=== PATIENT | female | born 1935 | race Caucasian/White ===

== ENCOUNTER 2017-04-26 16:13 | Inpatient (IN) | payer MEDICARE ==
[2017-04-26] MEDS ORDERED: Albuterol/Ipratropium NEB.SOL* Albuterol 2.5 MG/Ipratropium 0.5 MG 3 ML INH ONE (16:33)
[2017-04-26] MEDS ORDERED: NS 0.9% 1000 ML* 1,000 ML IV ONE ×2 (16:33→18:55)
[2017-04-26] MEDS ORDERED: methylPREDNISolone 125 MG* 2 ML VIAL IV ONE (16:33)
[2017-04-26] MEDS ORDERED: Levofloxacin 750 MG IVPREMIX(* 750 MG/150 ML BAG IVPB ONE (16:33)
--- NOTE | 2017-04-26 16:55 | RAD ---
INDICATION: Short of breath COMPARISON: October 02, 2013 TECHNIQUE: An AP portable view obtained at 1646 hours is submitted. FINDINGS: Bones/Soft Tissues: There are no acute bony findings. Cardiomediastinal: The cardiomediastinal silhouette is normal. There is prominence of interstitium and central pulmonary vessels Lungs: There is progressive airspace disease in the right lung base which could reflect an acute pneumonitis superimposed upon vascular congestive findings. Pleura: Small bilateral pleural effusions. Other: None IMPRESSION: MODERATE VASCULAR CONGESTION. POSSIBLE DEVELOPING RIGHT BASAL INFILTRATE. SMALL BILATERAL EFFUSIONS. SUGGEST FOLLOW-UP.
[2017-04-26 17:44] LABS: Hematocrit 37 % (35-47); Hemoglobin 11.9 g/dl (12.0-16.0); Mean Corpuscular HGB Conc 33 g/dl (31-36); Mean Corpuscular Hemoglobin 29 pg (27-31); Mean Corpuscular Volume 88 fL (80-97); Mean Platelet Volume 7 um3 (7.4-10.4); Red Blood Count 4.14 10^6/ul (4.0-5.4); Red Cell Distribution Width 13 % (10.5-15); White Blood Count 16.5 10^3/ul (3.5-10.8)
[2017-04-26 17:49] LABS: Add Diff/Slide Review? Slide Review Added; Comments Flag Yes
[2017-04-26 17:59] LABS: Albumin 3.3 g/dL (3.2-5.2); BUN/Creatinine Ratio 36.2 (8-20); Calcium 9.3 mg/dL (8.6-10.3); EGFR African American 104.5 (>60); EGFR Non-African American 81.3 (>60); Globulin 4.5 g/dL (2-4); Potassium 4.1 mmol/L (3.5-5.0); Total Bilirubin 0.3 mg/dL (0.2-1.0); Total Protein 7.8 g/dL (6.4-8.9)
[2017-04-26 18:01] LABS: Troponin I 0.06 ng/mL (<0.04)
[2017-04-26 18:35] LABS: Immature Granulocytes 15 % (0-9); Neutrophil % 74 % (38-83); Promyelocytes % 1 %; RBC Morphology Normal (Normal)
[2017-04-26] MEDS ORDERED: Acetaminophen TAB* 325 MG PO PRN (18:41)
[2017-04-26] MEDS ORDERED: Ondansetron INJ* 2 MG/ML VIAL IV PRN (18:41)
[2017-04-26] MEDS ORDERED: Albuterol 2.5 MG/3 ML NEB.SOL* (0.083%) INH PRN (18:41)
[2017-04-26] MEDS: Albuterol/Ipratropium NEB.SOL* Albuterol 2.5 MG/Ipratropium 0.5 MG 3 ML INH SCH ×2 (19:00→22:06)
[2017-04-26] MEDS ORDERED: Levofloxacin 250 MG IVPREMX(*) 250 MG/50 ML BAG IVPB SCH (19:00)
[2017-04-26 19:03] LABS: FIO2 5
[2017-04-26 19:06] LABS: PCO2 Arterial 43 mmHg (35-45)
[2017-04-26 20:12] LABS: TSH (Thyroid Stimulating Horm) 1.61 mcIU/mL (0.34-5.60)
--- NOTE | 2017-04-26 21:18 | ED ---
Zoey Lopez Julia, scribed for Mohsen Ferrera MD on 04/26/17 at 1631 . Shortness of Breath - HPI Summary HPI Summary: This patient is an 81 year old F presenting to [facility] accompanied by son with a chief complaint of SOB since this morning. The patient rates the pain 0/10 in severity. Symptoms alleviated by nothing. Patient reports cough and congestion. Son reports worsening confusion and loss of appetite. - History of Current Complaint Chief Complaint: EDShortnessOfBreath Hx Obtained From: Patient, Family/Press Assistant Onset/Duration: Gradual Onset, Lasting Hours, Still Present Timing: Constant Alleviating Factors: Nothing - Allergy/Home Medications Allergies/Adverse Reactions: Allergies Allergy/AdvReac Type Severity Reaction Status Date / Time Amoxicillin Allergy Severe Hives Verified 10/02/13 08:41 Penicillins Allergy Severe Hives Verified 10/02/13 08:41 Sulfa Antibiotics Allergy Severe Hives Verified 10/02/13 08:41 Alendronate [From Fosamax] Allergy Unknown Verified 10/02/13 09:00 Reaction Details Cephalexin Allergy Unknown Verified 10/02/13 09:00 Reaction Details Clavulanic Acid Allergy Unknown Verified 10/02/13 09:00 [From Augmentin] Reaction Details Doxycycline Allergy Unknown Verified 10/02/13 09:00 Reaction Details Home Medications: Home Medications Albuterol 2.5MG/3ML (0.083%)* [Ventolin 2.5 MG/3 ML NEB.MARY*] 2.5 mg INH Q6H PRN 04/26/17 [History Confirmed 04/26/17] Albuterol HFA INHALER* [Ventolin HFA Inhaler*] 1 puff INH Q6H PRN 04/26/17 [ History Confirmed 04/26/17] Tiotropium CAP.INH* [Spiriva CAP.INH*] 1 cap.inh INH DAILY 04/26/17 [History Confirmed 04/26/17] PMH/Surg Hx/FS Hx/Imm Hx Respiratory History: Reports: Hx Asthma, Hx Chronic Obstructive Pulmonary Disease (COPD) Opthamlomology History: Denies: Hx Legally Blind EENT History: Denies: Hx Deafness - Surgical History Surgery Procedure, Year, and Place: APPENDECTOMY Infectious Disease History: No Infectious Disease History: Denies: Traveled Outside the [place] in Last 30 Days - Family History Known Family History: Positive: Diabetes - Social History Alcohol Use: None Hx Substance Use: No Substance Use Type: Reports: None Hx Tobacco Use: Yes Type: Cigarettes Length of Time of Smoking/Using Tobacco: 50 YEARS Have You Smoked in the Last Year: No Review of Systems Negative: Fever Positive: Shortness Of Breath, Cough, Other - congestion Positive: Other - Loss of appetite Neurological: Other - confusion All Other Systems Reviewed And Are Negative: Yes Physical Exam - Summary Physical Exam Summary: Appearance: The patient is well-nourished in no acute distress and in no acute pain. Skin: The skin is warm and dry and skin color reflects adequate perfusion. HEENT: The head is normocephalic and atraumatic. The pupils are equal and reactive. The conjunctivae are clear and without drainage. Nares are patent and without drainage. Mouth reveals dry mucous membranes and the throat is without erythema and exudate. The external ears are intact. The ear canals are patent and without drainage. The tympanic membranes are intact. Neck: the neck is supple with full range of motion and non-tender. There are no carotid bruits. There is no neck vein distension. Respiratory: Chest is non-tender. Decreased AP diameter of chest. Decreased breath sounds in the lower lobes. Tachypnea Cardiovascular: Heart is tachycardia with regular rhythm. There is no murmur or rub auscultated. There is no peripheral edema and pulses are symmetrical and equal. Abdomen: The abdomen is soft and non-tender. There are normal bowel sounds heard in all four quadrants and there is no organomegaly palpated. Musculoskeletal: There is no back tenderness noted. Extremities are non-tender with full range of motion. There is good capillary refill. There is no peripheral edema or calf tenderness elicited. Neurological: Patient is alert and oriented to person, place and time. The patient has symmetrical motor strength in all four extremities. Cranial nerves are grossly intact. Deep tendon reflexes are symmetrical and equal in all four extremities. Psychiatric: The patient has an appropriate affect and does not exhibit any anxiety or depression. Triage Information Reviewed: Yes Vital Signs On Initial Exam: Initial Vitals Temp Pulse Resp BP Pulse Ox 98.7 F 130 34 156/103 70 04/26/17 16:24 04/26/17 16:24 04/26/17 16:24 04/26/17 16:24 04/26/17 16:24 Vital Signs Reviewed: Yes Diagnostics - Vital Signs Vital Signs Temp Pulse Resp BP Pulse Ox 04/26/17 16:24 98.7 F 130 34 156/103 70 - Laboratory Lab Results: Lab Results 04/26/17 04/26/17 04/26/17 Range/Units 17:25 17:25 17:25 WBC 16.5 H (3.5-10.8) 10^3/ul RBC 4.14 (4.0-5.4) 10^6/ul Hgb 11.9 L (12.0-16.0) g/dl Hct 37 (35-47) % MCV 88 (80-97) fL MCH 29 (27-31) pg MCHC 33 (31-36) g/dl RDW 13 (10.5-15) % Plt Count 471 H (150-450) 10^3/ul MPV 7 L (7.4-10.4) um3 Neut % (Auto) 92.4 H (38-83) % Lymph % (Auto) 3.0 L (25-47) % [place] % (Auto) 4.4 (1-9) % Eos % (Auto) 0 (0-6) % Baso % (Auto) 0.2 (0-2) % Absolute Neuts (auto) 15.2 H (1.5-7.7) 10^3/ul Absolute Lymphs (auto) 0.5 L (1.0-4.8) 10^3/ul Absolute Monos (auto) 0.7 (0-0.8) 10^3/ul Absolute Eos (auto) 0 (0-0.6) 10^3/ul Absolute Basos (auto) 0 (0-0.2) 10^3/ul Absolute Nucleated RBC 0 10^3/ul Immature Gran % 15 H (0-9) % Neutrophils % 74 (38-83) % Band Neutrophils % 14 H (0-8) % Lymphocytes % 6 L (25-47) % Monocytes % 5 (0-13) % Promyelocytes % 1 % Nucleated RBC % 0 Normal RBC Morphology Normal (Normal) Sodium 137 (133-145) mmol/L Potassium 4.1 (3.5-5.0) mmol/L Chloride 99 L (101-111) mmol/L Carbon Dioxide 28 (22-32) mmol/L Anion Gap 10 (2-11) mmol/L BUN 25 H (6-24) mg/dL Creatinine 0.69 (0.51-0.95) mg/dL Est GFR ( Amer) 104.5 (>60) Est GFR (Non-Af Amer) 81.3 (>60) BUN/Creatinine Ratio 36.2 H (8-20) Glucose 164 H (70-100) mg/dL Lactic Acid (0.5-2.0) mmol/L Calcium 9.3 (8.6-10.3) mg/dL Total Bilirubin 0.30 (0.2-1.0) mg/dL AST 28 (13-39) U/L ALT 17 (7-52) U/L Alkaline Phosphatase 99 (34-104) U/L Troponin I 0.06 H* (<0.04) ng/mL B-Natriuretic Peptide 90 ( - 100) pg/mL Total Protein 7.8 (6.4-8.9) g/dL Albumin 3.3 (3.2-5.2) g/dL Globulin 4.5 H (2-4) g/dL Albumin/Globulin Ratio 0.7 L (1-3) TSH 1.61 (0.34-5.60) mcIU/mL // Range/Units 17:25 WBC (3.5-10.8) 10^3/ul RBC (4.0-5.4) 10^6/ul Hgb (12.0-16.0) g/dl Hct (35-47) % MCV (80-97) fL MCH (27-31) pg MCHC (31-36) g/dl RDW (10.5-15) % Plt Count (150-450) 10^3/ul MPV (7.4-10.4) um3 Neut % (Auto) (38-83) % Lymph % (Auto) (25-47) % [place] % (Auto) (1-9) % Eos % (Auto) (0-6) % Baso % (Auto) (0-2) % Absolute Neuts (auto) (1.5-7.7) 10^3/ul Absolute Lymphs (auto) (1.0-4.8) 10^3/ul Absolute Monos (auto) (0-0.8) 10^3/ul Absolute Eos (auto) (0-0.6) 10^3/ul Absolute Basos (auto) (0-0.2) 10^3/ul Absolute Nucleated RBC 10^3/ul Immature Gran % (0-9) % Neutrophils % (38-83) % Band Neutrophils % (0-8) % Lymphocytes % (25-47) % Monocytes % (0-13) % Promyelocytes % % Nucleated RBC % Normal RBC Morphology (Normal) Sodium (133-145) mmol/L Potassium (3.5-5.0) mmol/L Chloride (101-111) mmol/L Carbon Dioxide (22-32) mmol/L Anion Gap (2-11) mmol/L BUN (6-24) mg/dL Creatinine (0.51-0.95) mg/dL Est GFR ( Amer) (>60) Est GFR (Non-Af Amer) (>60) BUN/Creatinine Ratio (8-20) Glucose (70-100) mg/dL Lactic Acid 1.1 (0.5-2.0) mmol/L Calcium (8.6-10.3) mg/dL Total Bilirubin (0.2-1.0) mg/dL AST (13-39) U/L ALT (7-52) U/L Alkaline Phosphatase (34-104) U/L Troponin I (<0.04) ng/mL B-Natriuretic Peptide ( - 100) pg/mL Total Protein (6.4-8.9) g/dL Albumin (3.2-5.2) g/dL Globulin (2-4) g/dL Albumin/Globulin Ratio (1-3) TSH (0.34-5.60) mcIU/mL Result Diagrams: 04/26/17 17:25 04/26/17 17:25 Lab Statement: Any lab studies that have been ordered have been reviewed, and results considered in the medical decision making process. - EKG 16:59 Cardiac Rate: Tachycardia EKG Rhythm: Sinus Tachycardia - at 127 BPM EKG Interpretation: This EKG is otherwise unremarkable. Course/Dx - Course Course Of Treatment: Ms. Bonilla presented with SOB. She has a history of COPD and had been getting worse for several days. She was given antibiotics, solumedrol and duonebs and was found to have a probable pneumonia. She is being admitted to the hospitalist service. - Diagnoses Provider Diagnoses: Pneumonia, COPD exacerbation Discharge - Discharge Plan Condition: Stable Disposition: ADMITTED TO [facility] The documentation as recorded by the Zoey summers Julia accurately reflects the service I personally performed and the decisions made by me, Mohsen Ferrera MD.
[2017-04-26] MEDS: Mometasone/Formoter 200/5 MDI INH SCH ×2 (21:42→22:08)
[2017-04-26] MEDS: NS 0.9% 1000 ML* 1,000 ML IV SCH (21:51)
[2017-04-26] MEDS: Heparin VIAL(*) 5000 UNITS/ML VIAL (FIVE THOUSAND) SUBCUT SCH (21:55)
--- NOTE | 2017-04-26 22:22 | HP ---
CC: Dr. Aceves * HISTORY AND PHYSICAL: DATE OF ADMISSION: 04/26/17 PROVIDER: Sangeeta Anthony NP. PRIMARY CARE PROVIDER: Dr. Aceves. ATTENDING PHYSICIAN WHILE IN THE HOSPITAL: Dr. Khurram Nunez * (report dictated by Sangeeta Anthony NP). CHIEF COMPLAINT: 1. Shortness of breath. 2. Tachycardia. HISTORY OF PRESENT ILLNESS: Ms. Bonilla is an 81-year-old female patient. She carries a history of COPD and asthma. She comes to the ER today complaining of increased shortness of breath for 2 days, decreased appetite and decreased p.o. intake for the past 2 days. She states that she did try her albuterol nebulizer at home today with no relief from the shortness of breath. She reports that she developed a moist congested cough approximately 2 days ago. She denies any fever. She denies chills. She denies any nausea, vomiting or diarrhea, denies any abdominal pain, denies any loss of consciousness. She states that she just started feeling fatigued today. She denies any urinary frequency or dysuria. Because of the shortness of breath and history of COPD, we were asked to evaluate for admission. The patient was also noted to be tachycardic. PAST MEDICAL HISTORY: Significant for: 1. COPD. 2. Asthma. PAST SURGICAL HISTORY: 1. Tubal ligation. 2. Partial thyroidectomy. 3. Appendectomy. MEDICATIONS: Home medications include: 1. Spiriva inhaler p.r.n. 2. Albuterol inhaler 1 puff q. 6 hours as needed and an albuterol nebulizer 2.5 mg q. 6 hours as needed. FAMILY HISTORY: Mother had a history of coronary artery disease with an [facility] in her 90s. No family history of diabetes. There is a family history and father had lung/bone cancer and the patient's sister also had lung cancer. SOCIAL HISTORY: The patient does report that she quit smoking 2 years ago. Prior to that she smoked approximately one pack per day for 65 years. She denies any alcohol use, denies drug use. She reports that she is tired. She currently lives with her son in her own home. Surrogate decision maker in the case that she is unable to make her own decisions is her son, Aditya Bonilla. His phone number is [phone]. Secondary surrogate decision maker is her daughter, Karon Liz. Her phone number is [phone]. REVIEW OF SYSTEMS: There is no documented fever. There is no significant weight change. There is no double vision, no ear drainage. She denies any rhinorrhea or sore throat. She denies any chest pain. She does report shortness of breath and moist nonproductive cough. She denies nausea, vomiting or diarrhea. She denies abdominal pain. There is no dysuria, no frequency. There is no seizure. No loss of consciousness. No pruritus, no skin ulcerations. Review of 14 systems was completed and all others are negative. PHYSICAL EXAMINATION GENERAL: At this time, Ms. Bonilla is an 81-year-old female patient. She appears mildly distressed. She is sitting on the stretcher in the ER. VITAL SIGNS: Blood pressure is 132/83, heart rate is anywhere from 115 to 127, temp is 98.7, respirations are 26 to 35, O2 sat is 97% on 4 liters nasal cannula. Her O2 sat on room air on admission to the ER was 70%. She does report that she occasionally wears home O2 at 3 liters. She reports that she wears home oxygen approximately 3 hours per day. HEENT: Head is atraumatic, normocephalic. Eyes: EOMs are intact. Sclerae anicteric, not pale. Oral mucosa appears very dry. NECK: Supple. There is no lymphadenopathy. LUNGS: Diminished throughout bilaterally with rales in the right base. She does have mild expiratory wheezing. CARDIAC: Heart sounds S1, S2 are irregular in rate and rhythm. There are no murmurs, rubs, or gallops. She is tachycardic. ABDOMEN: Soft, nontender. Bowel sounds are active x4. She reports a bowel movement today. EXTREMITIES: Pulses are +2 throughout. She moves all 4 extremities with 5/5 strength. NEUROLOGICAL: She is awake. She is alert and oriented x3. Handgrips are equal. Tongue is midline. Speech is clear. There is no focal deficit noted. SKIN: Intact. DIAGNOSTIC STUDIES/LAB DATA: WBCs are 16.5, hemoglobin is 11.9, hematocrit is 37, platelet count is 471, neutrophils are 92.4, lymphs are 3.0. Sodium is 137 , potassium 4.1, chloride 99, carbon dioxide is 28, anion gap is 10, BUN is 25, creatinine is 0.69, glucose is 164, lactic acid is 1.1, calcium is 9.3, AST 28, ALT 17. Her troponin was 0.06. Albumin is 3.3. ABG: pH is 7.38, pCO2 is 43, pO2 is 149, O2 saturation is 99.6, HCO3 is 25, FiO2 is 5 liters via oxygen mask. BNP was 90. EKG shows irregular sinus tachycardia at a rate of 127. Chest x-ray: Impression is moderate vascular congestion, possible developing right basilar infiltrates, small bilateral effusions. ASSESSMENT AND PLAN: Ms. Bonilla is an 81-year-old female patient who came into the ER today with complaints of shortness of breath and cough. We were asked to evaluate her because of the tachycardia and shortness of breath. We will admit her to the ICU with the plan as follows: 1. Suspect right lower lobe pneumonia. Hypoxia: We will continue her on Levaquin, her creatinine clearance is 43, a renal dose of Levaquin will be started and per pharmacy that is 250 mg q. 24 hours. O2 will be via Vapotherm to maintain O2 saturations greater than or equal to 92%. We will repeat a CBC and BMP in the a.m. 2. Chronic obstructive pulmonary disease: We will continue her on albuterol nebulizers and DuoNeb. We will also put her on Dulera and continue oxygen support as needed. 3. Tachycardia: We will continue to hydrate her with IV fluids. I will also check lab work in the morning. 4. Elevated troponin: We will trend troponins q. 3 hours. I suspect that this could be due to the respiratory demand. We will repeat an EKG this evening and also in the morning. 5. Sepsis: We could consider the possibility of sepsis. Her qSOFA scale is 1 , which puts her at approximately 7% risk of mortality during the hospital stay. We have given her IV hydration and IV antibiotics. We will order sputum culture and a UA. 6. FEN: She can be placed on a clear liquid diet and advanced to regular as tolerated. 4. Code status: She has a full code. 5. DVT prophylaxis: She will receive heparin 5000 units subcu q. 8 hours. 6. Disposition: She will be admitted to the ICU. TIME SPENT: Time spent on this admission was approximately 60 minutes, greater than half of that time was spent [id number] with the patient obtaining history and physical; the other half of the time was spent going over the plan of care and implementing the plan of care. I have discussed my plan of care with my attending Dr. Khurram Nunez and he is in agreement with my plan. SANGEETA ANTHONY, ENGINE DYNAMOMETER TESTER [id number]/[facility] #: [id number] CRESENCIO
[2017-04-27] MEDS: Albuterol/Ipratropium NEB.SOL* Albuterol 2.5 MG/Ipratropium 0.5 MG 3 ML INH SCH ×4 (03:48→20:42)
[2017-04-27 05:49] LABS: Hematocrit 30 % (35-47); Hemoglobin 10.3 g/dl (12.0-16.0); Mean Corpuscular HGB Conc 34 g/dl (31-36); Mean Corpuscular Hemoglobin 30 pg (27-31); Mean Corpuscular Volume 89 fL (80-97); Mean Platelet Volume 7 um3 (7.4-10.4); Red Blood Count 3.41 10^6/ul (4.0-5.4); Red Cell Distribution Width 13 % (10.5-15); White Blood Count 9.6 10^3/ul (3.5-10.8)
[2017-04-27 05:59] LABS: Add Diff/Slide Review? Slide Review Added; Comments Flag Yes
[2017-04-27] MEDS: Heparin VIAL(*) 5000 UNITS/ML VIAL (FIVE THOUSAND) SUBCUT SCH ×3 (06:09→23:23)
[2017-04-27] MEDS: methylPREDNISolone 125 MG* 2 ML VIAL IV SCH ×2 (06:09→16:56)
[2017-04-27 06:10] LABS: BUN/Creatinine Ratio 32.8 (8-20); Calcium 8.2 mg/dL (8.6-10.3); EGFR African American 127.7 (>60); EGFR Non-African American 99.3 (>60); Magnesium 1.8 mg/dL (1.9-2.7)
[2017-04-27 06:36] LABS: Troponin I 0.09 ng/mL (<0.04)
[2017-04-27 07:15] LABS: Urine Bacteria Absent (Absent); Urine Bilirubin Negative (Negative); Urine Glucose Negative (Negative); Urine Nitrite Negative (Negative)
[2017-04-27] MEDS ORDERED: Magnesium Sulfate 2 GM IV* 2 GM/50 ML BAG IVPB ONE (08:05)
[2017-04-27 08:07] LABS: Hypochromasia 1+; Immature Granulocytes 7 % (0-9); Metamyelocytes % 1 % (0-2); Myelocytes % 1 % (0-1); Neutrophil % 83 % (38-83)
--- NOTE | 2017-04-27 11:37 | PN ---
Subjective Date of Service: 04/27/17 Interval History: Patient seen and examined at bedside. Denies fever, chills, chest pain, V/D. Pt states that she has an intermittent nonproductive cough, reports nausea this AM and shortness of breath at baseline. Pt uses 3L O2 at home and has been off vapotherm since early this AM. Tele: Sinus rhythm to sinus tachycardia, rate 90-110's Family History: Unchanged from Admission Social History: Unchanged from Admission Past Medical History: Unchanged from Admission Objective Active Medications: Acetaminophen (Tylenol Tab*) 650 mg PO Q6H PRN Reason: FEVER/PAIN Albuterol (Ventolin 2.5 Mg/3 Ml Neb.Emily*) 2.5 mg INH Q2H PRN Reason: SOB/ WHEEZING Albuterol/Ipratropium (Duoneb (Albuterol 2.5 Mg/Ipratropium 0.5 Mg)) 1 neb INH [id number] AWAKE KEVIN Heparin Sodium (Porcine) (Heparin Vial(*)) 5,000 units SUBCUT Q8HR KEVIN Levofloxacin/Dextrose (Levaquin 250 Mg Ivpremx(*)) 250 mg in 50 mls @ 50 mls/ hr IVPB Q24H KEVIN Sodium Chloride (Ns 0.9% 1000 Ml*) 1,000 mls @ 75 mls/hr IV PER RATE [facility] Methylprednisolone Sodium Succinate (Solu-Medrol 125mg *) 60 mg IV Q12H KEVIN Mometasone Furoate/Formoterol Fumar (Dulera 200/5 Mdi*) 2 puff INH BID KEVIN Ondansetron HCl (Zofran Inj*) 4 mg IV Q4H PRN Reason: NAUSEA/VOMITING Vital Signs - 8 hr 04/27/17 04/27/17 04/27/17 03:40 03:49 04:00 Temperature 98.6 F Pulse Rate 90 105 Respiratory 24 30 Rate Blood Pressure 120/87 (mmHg) O2 Sat by Pulse 97 96 Oximetry 04/27/17 04/27/17 04/27/17 04:58 05:00 05:58 Temperature Pulse Rate 98 Respiratory 18 31 16 Rate Blood Pressure 101/71 (mmHg) O2 Sat by Pulse 95 Oximetry 04/27/17 04/27/17 04/27/17 06:00 07:00 07:36 Temperature Pulse Rate 98 98 97 Respiratory 29 19 16 Rate Blood Pressure 109/71 124/69 (mmHg) O2 Sat by Pulse 95 96 98 Oximetry 04/27/17 04/27/17 04/27/17 07:40 08:00 08:01 Temperature 98.3 F Pulse Rate 122 105 Respiratory 38 33 Rate Blood Pressure 134/87 (mmHg) O2 Sat by Pulse 94 96 Oximetry 04/27/17 09:00 Temperature Pulse Rate 115 Respiratory 25 Rate Blood Pressure 134/86 (mmHg) O2 Sat by Pulse 95 Oximetry Oxygen Devices in Use Now: Nasal Cannula - 3L Appearance: NAD, sitting up in a chair Ears/Nose/Mouth/Throat: Mucous Membranes Moist Respiratory: Symmetrical Chest Expansion and Respiratory Effort, Clear to Auscultation - , diminished Cardiovascular: NL Sounds; No Murmurs; No JVD, RRR Abdominal: NL Sounds; No Tenderness; No Distention Extremities: No Edema Skin: No Rash or Ulcers Neurological: Alert and Oriented x 3, NL Muscle Strength and Tone Lines/Tubes/Other Access: Clean, Dry and Intact Peripheral IV - site benign Nutrition: Taking PO's Result Diagrams: 04/27/17 05:43 04/27/17 05:43 Additional Lab and Data: Microbiology and Other Data: Microbiology 04/27/17 06:15 Legionella Urinary Antigen - Final Urine Negative Legionella Streptococcus pneumoniae Ag Screen - Final Negative S. pneumo Antigen 04/26/17 21:09 Nasal Screen MRSA (PCR)([facility]) - Final Nasal Mrsa Negative 04/26/17 19:36 Influenza Types A,B Antigen ([facility]) - Final Nasal Specimen received for Influenza A/B Molecular testing Assess/Plan/Problems-Billing Assessment: Ms. Bonilla is an 81 yo female with PMH significant for COPD and asthma who presented to the emergency room with complaints of shortness of breath and cough. She was found to have pneumonia and hypoxia. - Patient Problems (1) Pneumonia Code(s): J18.9 - PNEUMONIA, UNSPECIFIED ORGANISM SNOMED Code(s): 588913713 Comment: - Afebrile and leukocytosis resolved - Sputum culture pending - S. Pneumo and legionella antigens negative - Influenza A/B PCR negative - Continue Levaquin (2) Acute respiratory failure Code(s): J96.00 - ACUTE RESPIRATORY FAILURE, UNSP W HYPOXIA OR HYPERCAPNIA SNOMED Code(s): 95951101 Comment: - Resolved - Acute on chronic hypoxic respiratory failure - Pt has been weaned off vapotherm to baseline O2 of 3L via NC (3) Tachycardia Code(s): R00.0 - TACHYCARDIA, UNSPECIFIED SNOMED Code(s): 4649010 Comment: - Continue tele (4) Elevated troponin Code(s): R74.8 - ABNORMAL LEVELS OF OTHER SERUM ENZYMES SNOMED Code(s): 459530917 Comment: - Denies chest pain - Troponin 0.06, 0.18, 0.18, 0.09 - Suspect secondary to demand ischemia in setting of hypoxia and PNA - Will get another EKG now (5) COPD (chronic obstructive pulmonary disease) Code(s): J44.9 - CHRONIC OBSTRUCTIVE PULMONARY DISEASE, UNSPECIFIED SNOMED Code(s): 70374062 Comment: - No signs of exacerbation - Continue albuterol PRN, Duoneb Q6H WA and dulera - Back to baseline O2 use, 3L via NC (6) DVT prophylaxis Current Visit: Yes Status: Acute Code(s): UML1725 - SNOMED Code(s): 743559350 (7) Full code status Current Visit: Yes Status: Acute Code(s): Z78.9 - OTHER SPECIFIED HEALTH STATUS SNOMED Code(s): 545587349 Status and Disposition: Inpatient. Discharge to home when medically stable, suspect in 1-2 days.
[2017-04-27] MEDS: NS 0.9% 1000 ML* 1,000 ML IV SCH (12:00)
[2017-04-27] MEDS: Mometasone/Formoter 200/5 MDI INH SCH ×2 (13:38→20:40)
[2017-04-27] MEDS: Levofloxacin 250 MG IVPREMX(*) 250 MG/50 ML BAG IVPB SCH (18:19)
[2017-04-27] MEDS: guaiFENesin ER TAB 600 MG PO SCH (23:23)
[2017-04-28] MEDS: Albuterol/Ipratropium NEB.SOL* Albuterol 2.5 MG/Ipratropium 0.5 MG 3 ML INH SCH ×4 (03:58→20:26)
[2017-04-28] MEDS: Heparin VIAL(*) 5000 UNITS/ML VIAL (FIVE THOUSAND) SUBCUT SCH ×3 (05:44→22:36)
[2017-04-28] MEDS: methylPREDNISolone 125 MG* 2 ML VIAL IV SCH ×2 (05:53→20:21)
[2017-04-28] MEDS: NS 0.9% 1000 ML* 1,000 ML IV SCH ×2 (05:54→20:23)
[2017-04-28] MEDS: guaiFENesin ER TAB 600 MG PO SCH ×2 (08:31→20:18)
[2017-04-28] MEDS: Mometasone/Formoter 200/5 MDI INH SCH ×2 (08:46→20:29)
--- NOTE | 2017-04-28 09:30 | PN ---
Subjective Date of Service: 04/28/17 Interval History: Patient seen and examined at bedside. She is sitting on the edge of bed, currently using 3Lnc. She reports that she still feels a little shaky but denies feeling significant SOB or CP at rest. She has not been up in her room much. She reports that she uses oxygen at home as needed but not all the time. Patient with intermittent, non-productive cough. Discussed working on mobility in room; she lives in a one story apartment with her son but states he is not home during the day. No other acute concerns at this time. Tele: Sinus tachycardia 90-102 Family History: Unchanged from Admission Social History: Unchanged from Admission Past Medical History: Unchanged from Admission Objective Active Medications: Acetaminophen (Tylenol Tab*) 650 mg PO Q6H PRN PRN Reason: FEVER/PAIN Albuterol (Ventolin 2.5 Mg/3 Ml Neb.Emily*) 2.5 mg INH Q2H PRN PRN Reason: SOB/WHEEZING Albuterol/Ipratropium (Duoneb (Albuterol 2.5 Mg/Ipratropium 0.5 Mg)) 1 neb INH [id number] AWAKE [facility] Last Admin: 04/28/17 08:46 Dose: 1 neb Guaifenesin (Mucinex*) 600 mg PO BID [facility] Last Admin: 04/28/17 08:31 Dose: 600 mg Heparin Sodium (Porcine) (Heparin Vial(*)) 5,000 units SUBCUT Q8HR KEVIN Last Admin: 04/28/17 05:44 Dose: 5,000 units Levofloxacin/Dextrose (Levaquin 250 Mg Ivpremx(*)) 250 mg in 50 mls @ 50 mls/ hr IVPB Q24H [facility] Last Admin: 04/27/17 18:19 Dose: 50 mls/hr Sodium Chloride (Ns 0.9% 1000 Ml*) 1,000 mls @ 75 mls/hr IV PER RATE [facility] Last Admin: 04/28/17 05:54 Dose: 75 mls/hr Melatonin (Melatonin (Nf)) 3 mg PO BEDTIME PRN; Protocol PRN Reason: Sleep Methylprednisolone Sodium Succinate (Solu-Medrol 125mg *) 60 mg IV Q12H [facility] Last Admin: 04/28/17 05:53 Dose: 60 mg Mometasone Furoate/Formoterol Fumar (Dulera 200/5 Mdi*) 2 puff INH BID KEVIN Last Admin: 04/28/17 08:46 Dose: 2 puff Ondansetron HCl (Zofran Inj*) 4 mg IV Q4H PRN PRN Reason: NAUSEA/VOMITING Vital Signs - 8 hr 04/28/17 04/28/17 04/28/17 03:03 07:43 08:00 Temperature 98.0 F 98.5 F Pulse Rate 89 92 Respiratory 20 18 32 Rate Blood Pressure 126/53 143/66 (mmHg) O2 Sat by Pulse 100 99 Oximetry 04/28/17 08:47 Temperature Pulse Rate 88 Respiratory 20 Rate Blood Pressure (mmHg) O2 Sat by Pulse 98 Oximetry Oxygen Devices in Use Now: Nasal Cannula Appearance: Elderly female, sitting on edge of bed, mildly tachypneic but able to speak in full sentences Eyes: No Scleral Icterus, PERRLA Ears/Nose/Mouth/Throat: Clear Oropharnyx, Mucous Membranes Moist Neck: NL Appearance and Movements; NL JVP Respiratory: Symmetrical Chest Expansion and Respiratory Effort, Clear to Auscultation - diminished Cardiovascular: NL Sounds; No Murmurs; No JVD, RRR Abdominal: NL Sounds; No Tenderness; No Distention Extremities: No Edema, No Clubbing, Cyanosis Skin: No Rash or Ulcers Neurological: Alert and Oriented x 3, NL Muscle Strength and Tone Lines/Tubes/Other Access: Clean, Dry and Intact Peripheral IV Nutrition: Taking PO's Result Diagrams: 04/28/17 09:40 04/28/17 09:37 Additional Lab and Data: Microbiology and Other Data: Microbiology 04/27/17 06:15 Legionella Urinary Antigen - Final Urine Negative Legionella Streptococcus pneumoniae Ag Screen - Final Negative S. pneumo Antigen 04/26/17 21:09 Nasal Screen MRSA (PCR)([facility]) - Final Nasal Mrsa Negative 04/26/17 19:36 Influenza Types A,B Antigen ([facility]) - Final Nasal Specimen received for Influenza A/B Molecular testing Assess/Plan/Problems-Billing Assessment: Ms. Bonilla is an 81 yo female with PMH significant for COPD and asthma who presented to the emergency room with complaints of shortness of breath and cough. She was found to have pneumonia and hypoxia. - Patient Problems (1) Pneumonia Code(s): J18.9 - PNEUMONIA, UNSPECIFIED ORGANISM Comment: - Afebrile, VSS, mentation within baseline - Still on 3Lnc and maintaining O2 sats - With new leukocytosis this AM, ? secondary to steroids - Sputum culture pending - S. Pneumo and legionella antigens negative - Influenza A/B PCR negative - Continue Levaquin (2) Acute respiratory failure Code(s): J96.00 - ACUTE RESPIRATORY FAILURE, UNSP W HYPOXIA OR HYPERCAPNIA Comment: - Resolved - Acute on chronic hypoxic respiratory failure - Pt has been weaned off vapotherm to baseline O2 of 3L via NC (3) Tachycardia Code(s): R00.0 - TACHYCARDIA, UNSPECIFIED Comment: HR 80s-90s today, sinus tachycarida Continue telemetry (4) Elevated troponin Code(s): R74.8 - ABNORMAL LEVELS OF OTHER SERUM ENZYMES Comment: - Denies chest pain - Troponin 0.06, 0.18, 0.18, 0.09 - Suspect secondary to demand ischemia in setting of hypoxia and PNA - Most recent EKG with no significant ST/T-wave changes (5) COPD (chronic obstructive pulmonary disease) Code(s): J44.9 - CHRONIC OBSTRUCTIVE PULMONARY DISEASE, UNSPECIFIED Comment: - No signs of exacerbation - Continue albuterol PRN, Duoneb Q6H WA and dulera - Back to baseline O2 use, 3L via NC (6) DVT prophylaxis Comment: SQ heparin (7) Full code status Code(s): Z78.9 - OTHER SPECIFIED HEALTH STATUS Status and Disposition: Inpatient. Discharge to home when medically stable.
[2017-04-28 10:11] LABS: Hematocrit 33 % (35-47); Hemoglobin 10.8 g/dl (12.0-16.0); Mean Corpuscular HGB Conc 33 g/dl (31-36); Mean Corpuscular Hemoglobin 29 pg (27-31); Mean Corpuscular Volume 88 fL (80-97); Mean Platelet Volume 7 um3 (7.4-10.4); Red Blood Count 3.72 10^6/ul (4.0-5.4); Red Cell Distribution Width 13 % (10.5-15); White Blood Count 19.2 10^3/ul (3.5-10.8)
[2017-04-28 10:13] LABS: Add Diff/Slide Review? Slide Review Added; Comments Flag Yes
[2017-04-28 10:39] LABS: BUN/Creatinine Ratio 32.1 (8-20); Calcium 9.1 mg/dL (8.6-10.3); EGFR African American 141.7 (>60); EGFR Non-African American 110.2 (>60); Potassium 3.9 mmol/L (3.5-5.0)
[2017-04-28 10:42] LABS: Immature Granulocytes 6 % (0-9); Metamyelocytes % 2 % (0-2); Myelocytes % 3 % (0-1); Neutrophil % 87 % (38-83); RBC Morphology Normal (Normal)
[2017-04-28] MEDS: Levofloxacin 250 MG IVPREMX(*) 250 MG/50 ML BAG IVPB SCH (20:19)
[2017-04-29] MEDS: Albuterol/Ipratropium NEB.SOL* Albuterol 2.5 MG/Ipratropium 0.5 MG 3 ML INH SCH ×3 (00:58→13:05)
[2017-04-29] MEDS: CMCS Melatonin (NF) 3 MG TAB PO PRN ×2 (02:29→21:54)
[2017-04-29] MEDS: methylPREDNISolone 125 MG* 2 ML VIAL IV SCH (05:40)
[2017-04-29] MEDS: Heparin VIAL(*) 5000 UNITS/ML VIAL (FIVE THOUSAND) SUBCUT SCH ×3 (05:41→21:55)
[2017-04-29 06:39] LABS: Hematocrit 37 % (35-47); Hemoglobin 12.5 g/dl (12.0-16.0); Mean Corpuscular HGB Conc 34 g/dl (31-36); Mean Corpuscular Hemoglobin 30 pg (27-31); Mean Corpuscular Volume 88 fL (80-97); Mean Platelet Volume 7 um3 (7.4-10.4); Red Blood Count 4.19 10^6/ul (4.0-5.4); Red Cell Distribution Width 13 % (10.5-15); White Blood Count 14.3 10^3/ul (3.5-10.8)
[2017-04-29 06:40] LABS: Add Diff/Slide Review? Slide Review Added; Comments Flag Yes
[2017-04-29 07:03] LABS: BUN/Creatinine Ratio 32.1 (8-20); EGFR African American 141.7 (>60); EGFR Non-African American 110.2 (>60)
[2017-04-29] MEDS: Mometasone/Formoter 200/5 MDI INH SCH ×2 (07:52→21:31)
[2017-04-29 08:10] LABS: Potassium 4.5 mmol/L (3.5-5.0)
[2017-04-29 08:11] LABS: Calcium 7.8 mg/dL (8.6-10.3)
[2017-04-29] MEDS: guaiFENesin ER TAB 600 MG PO SCH ×2 (08:14→21:54)
--- NOTE | 2017-04-29 17:01 | PN ---
Subjective Date of Service: 04/29/17 Interval History: Patient seen and examined at bedside. Patient remains on 3L. She reports that breathing is improved. She states she can finally has a productive cough. Pulling 3L on IS. Intermittent tachycardia Family History: Unchanged from Admission Social History: Unchanged from Admission Past Medical History: Unchanged from Admission Objective Active Medications: Acetaminophen (Tylenol Tab*) 650 mg PO Q6H PRN Albuterol (Ventolin 2.5 Mg/3 Ml Neb.Emily*) 2.5 mg INH Q2H PRN Albuterol/Ipratropium (Duoneb (Albuterol 2.5 Mg/Ipratropium 0.5 Mg)) 1 neb INH [id number] AWAKE KEVIN Guaifenesin (Mucinex*) 600 mg PO BID KEVIN Heparin Sodium (Porcine) (Heparin Vial(*)) 5,000 units SUBCUT Q8HR KEVIN Levofloxacin/Dextrose (Levaquin 250 Mg Ivpremx(*)) 250 mg in 50 mls @ 50 mls/ hr IVPB Q24H KEVIN Sodium Chloride (Ns 0.9% 1000 Ml*) 1,000 mls @ 75 mls/hr IV PER RATE KEVIN Melatonin (Melatonin (Nf)) 3 mg PO BEDTIME PRN; Protocol Methylprednisolone Sodium Succinate (Solu-Medrol 125mg *) 60 mg IV Q12H KEVIN Mometasone Furoate/Formoterol Fumar (Dulera 200/5 Mdi*) 2 puff INH BID KEVIN Ondansetron HCl (Zofran Inj*) 4 mg IV Q4H PRN Vital Signs Temp Pulse Resp BP Pulse Ox 98.0 F 91 18 148/58 96 04/29/17 15:32 04/29/17 15:32 04/29/17 15:32 04/29/17 15:32 04/29/17 15:32 Oxygen Devices in Use Now: Nasal Cannula Appearance: sitting up in bed, NAD Eyes: No Scleral Icterus, PERRLA Ears/Nose/Mouth/Throat: NL Teeth, Lips, Gums Neck: NL Appearance and Movements; NL JVP Respiratory: - - Slight crackles at right base. Cardiovascular: NL Sounds; No Murmurs; No JVD, - - irregular at times. Sinus arrhythmia on telemetry. Abdominal: NL Sounds; No Tenderness; No Distention Extremities: No Edema Skin: No Rash or Ulcers Neurological: Alert and Oriented x 3 Lines/Tubes/Other Access: Clean, Dry and Intact Peripheral IV Nutrition: Taking PO's Result Diagrams: 04/29/17 06:13 04/29/17 06:13 Additional Lab and Data: . Microbiology and Other Data: . Assess/Plan/Problems-Billing Ms. Bonilla is an 81 yo female with PMH significant for COPD and asthma who presented to the emergency room with complaints of shortness of breath and cough. She was found to have pneumonia and hypoxia. - Patient Problems (1) Acute respiratory failure Comment: Resolved. Acute on chronic hypoxic respiratory failure secondary to pneumonia. Pt has hx of COPD and only weanr oxygen PRN at home. Will try to wean oxygen down further. I/O possibly show 2-3L fluid positive. Will give 20mg IV Lasix now x1. (2) Pneumonia Comment: Still with leukocytosis this am, but improved. Continue Levaquin. Influenza negative. S. pneumo and legionella negative. (3) COPD (chronic obstructive pulmonary disease) Status: Chronic Comment: Continue IV steroids, albuterol nebs, Spiriva, and Dulera. She was not on inhaled steroids at home. At baseline only wearrs oxygen PRN. Will try to wean for O2 sat> 89. (4) Elevated troponin Comment: Suspect secondary to demand ischemia in setting of hypoxia and PNA. Most recent EKG with no significant ST/T-wave changes. Will need outpatient echo and stress test. (5) Tachycardia Comment: Improved; D/c telemetry. (6) DVT prophylaxis Comment: SQ heparin (7) Full code status Current Visit: Yes Status and Disposition: Inpatient. Discharge to home when medically stable.
[2017-04-29] MEDS ORDERED: Furosemide IV* 10 MG/ML 2 ML VIAL (20 MG) IV ONE (17:03)
[2017-04-29] MEDS: methylPREDNISolone SOD 40 MG* 1 ML VIAL IV SCH (17:46)
[2017-04-29] MEDS: Albuterol 2.5 MG/3 ML NEB.SOL* (0.083%) INH SCH (19:27)
[2017-04-30] MEDS: Albuterol 2.5 MG/3 ML NEB.SOL* (0.083%) INH SCH ×3 (01:00→12:09)
[2017-04-30] MEDS: Heparin VIAL(*) 5000 UNITS/ML VIAL (FIVE THOUSAND) SUBCUT SCH ×2 (05:15→13:59)
[2017-04-30] MEDS: methylPREDNISolone SOD 40 MG* 1 ML VIAL IV SCH (05:15)
[2017-04-30 06:08] LABS: Hematocrit 30 % (35-47); Hemoglobin 10.1 g/dl (12.0-16.0); Mean Corpuscular HGB Conc 34 g/dl (31-36); Mean Corpuscular Hemoglobin 29 pg (27-31); Mean Corpuscular Volume 87 fL (80-97); Mean Platelet Volume 7 um3 (7.4-10.4); Red Blood Count 3.48 10^6/ul (4.0-5.4); Red Cell Distribution Width 13 % (10.5-15); White Blood Count 16.2 10^3/ul (3.5-10.8)
[2017-04-30 06:16] LABS: Add Diff/Slide Review? Slide Review Added; Comments Flag Yes
[2017-04-30] MEDS: Mometasone/Formoter 200/5 MDI INH SCH (07:38)
[2017-04-30 08:30] LABS: Immature Granulocytes 5 % (0-9); Myelocytes % 2 % (0-1); Neutrophil % 81 % (38-83); RBC Morphology Normal (Normal)
[2017-04-30] MEDS: guaiFENesin ER TAB 600 MG PO SCH (08:45)
[2017-04-30] MEDS ORDERED: Tiotropium CAP.INH* CAP.INH/18 MCG (USE ORDER SET !) INH SCH (09:00)
[2017-04-30] MEDS ORDERED: Spiriva Inhaler DEVICE* 1 EACH DEVICE ONE (09:00)
[2017-04-30] MEDS ORDERED: Levofloxacin TAB* 250 MG PO SCH (09:00)
[2017-04-30 09:16] VITALS: BP 144/88
--- NOTE | 2017-04-30 11:57 | DCNOTE ---
Subjective Date of Service: 04/30/17 Interval History: Patient seen and examined at bedside. Denies SOB. Still no productive cough. Able to ambulate to BR with minimal assistance. Sat 98% on room air and 91% on 1L. At home wears 3L for exertional activities. Family History: Unchanged from Admission Social History: Unchanged from Admission Past Medical History: Unchanged from Admission Objective Active Medications: Acetaminophen (Tylenol Tab*) 650 mg PO Q6H PRN Albuterol (Ventolin 2.5 Mg/3 Ml Neb.Emily*) 2.5 mg INH [id number] AWAKE KEVIN Guaifenesin (Mucinex*) 600 mg PO BID KEVIN Heparin Sodium (Porcine) (Heparin Vial(*)) 5,000 units SUBCUT Q8HR KEVIN Levofloxacin (Levaquin Tab*) 250 mg PO Q24H KEVIN Melatonin (Melatonin (Nf)) 3 mg PO BEDTIME PRN; Protocol Methylprednisolone Sodium Succinate (Solu-Medrol 40 Mg) 40 mg IV Q12H KEVIN Mometasone Furoate/Formoterol Fumar (Dulera 200/5 Mdi*) 2 puff INH BID KEVIN Ondansetron HCl (Zofran Inj*) 4 mg IV Q4H PRN Tiotropium [place] (Spiriva Cap.Inh*) 1 cap INH DAILY KEVIN Vital Signs - 8 hr 04/30/17 04/30/17 04/30/17 07:39 07:54 08:15 Temperature 97.3 F Pulse Rate 92 113 Respiratory 20 22 18 Rate Blood Pressure 144/88 (mmHg) O2 Sat by Pulse 96 93 Oximetry Oxygen Devices in Use Now: Nasal Cannula Appearance: sitting up in bed, NAD Eyes: No Scleral Icterus, PERRLA Ears/Nose/Mouth/Throat: NL Teeth, Lips, Gums Neck: NL Appearance and Movements; NL JVP Respiratory: Symmetrical Chest Expansion and Respiratory Effort, - - decreased at bases Cardiovascular: NL Sounds; No Murmurs; No JVD Abdominal: NL Sounds; No Tenderness; No Distention Extremities: No Edema Skin: No Rash or Ulcers Neurological: Alert and Oriented x 3, NL Muscle Strength and Tone Lines/Tubes/Other Access: Clean, Dry and Intact Peripheral IV Nutrition: Taking PO's Result Diagrams: 04/30/17 05:52 04/29/17 06:13 Additional Lab and Data: . Microbiology and Other Data: . Assess/Plan/Problems-Billing Ms. Bonilla is an 81 yo female with PMH significant for COPD and asthma who presented to the emergency room with complaints of shortness of breath and cough. She was found to have pneumonia and hypoxia. - Patient Problems (1) Acute respiratory failure (2) Pneumonia (3) COPD (chronic obstructive pulmonary disease) (4) Elevated troponin (5) Tachycardia (6) DVT prophylaxis (7) Full code status Status and Disposition: Inpatient. Patient stable for discharge. Please see dictated discharge summary for detail regarding plans for diagnoses outlined above.
--- NOTE | 2017-05-01 05:34 | DS ---
CC: Dr. Aceves.* DISCHARGE SUMMARY: DATE OF ADMISSION: 04/26/17 DATE OF DISCHARGE: 04/30/17 PRIMARY CARE PHYSICIAN: Dr. Aceves. ATTENDING PHYSICIAN: Filipe Black MD * (report dictated by Fernando Sue NP). PRIMARY DIAGNOSES: 1. Acute respiratory failure secondary to pneumonia. 2. Chronic obstructive pulmonary disease exacerbation. 3. Elevated troponin. SECONDARY DIAGNOSIS: Asthma. STUDIES WHILE IN THE HOSPITAL: 1. Chest x-ray 04/26/17 moderate vascular condition possibly developing right basilar infiltrates, small bilateral effusion, suggest followup. MEDICATIONS AT THE TIME OF DISCHARGE: New medication: 1. Mucinex 600 mg oral twice daily. 2. Levaquin 250 mg oral every 24 hours. 3. Dulera 200/5 meter dosed inhaler 2 puffs inhaled twice daily. 4. Prednisone 10 mg taper 4 tablets for 3 days, 3 tablets for 3 days, 2 tabs for 3 days, 1 tablet for 3 days then stop. The following medications are the medications that patient came in on: 1. Albuterol inhaler 1 puff every 6 hours as needed. 2. Ventolin nebulizer 2.5 mg inhaled every 6 hours as needed. 3. Spiriva 1 capsule inhaled daily. HISTORY OF PRESENT ILLNESS AND HOSPITAL COURSE: Ms. Bartlett is an 81-year-old female with the past medical history significant for COPD and asthma. She presented to the emergency room on 04/26/17 with complaint of shortness of breath, decreased appetite and oral intake. Chest x-ray in the emergency room revealed possible infiltrate. The patient was not only hypoxic, but she was tachycardic in the emergency room. She was admitted to the intensive care unit and placed on Vapotherm. She was started on IV Levaquin as well as IV Solu- Medrol. Within 24 hours her oxygenation improved and she was able to be transferred back to the floor. On the floor her therapy continued. In addition to antibiotics, IV steroids nebulizer treatments and Dulera were continued. Her home Spiriva was also restarted. Gradually, she was able to be weaned down to 3 L. At home, she wears 3 L, yet only with exertion subsequently oxygen was able to be weaned down to 1 L. On 1 L she was satting 93 % and on room air she was 89%. At this point, she was able to ambulate without any complaint of shortness of breath. In addition, on admission, the patient was found to have elevated troponin of 0.18, this peaked at 0.18 and came down to 0.09. The patient has no history of heart disease. Recommendations for the patient to have an echocardiogram as well as a stress test as an outpatient once she is over the acute phase of her illness. She can follow up with Dr. Aceves who can in turn refer her for these tests. It is likely that the troponin elevation was secondary to demand ischemia as she had no EKG changes. The patient's white count was initially elevated and trended down yet subsequently started to trend up, although she remained afebrile. It is likely that this was from steroids. All of her cultures came back negative including urine culture, blood cultures. In addition she was negative for legionella and Strep pneumo antigen in her urine. PHYSICAL EXAM: On 04/30/17 vitals were as follows temperature 97.3, heart rate 90, respiratory rate 18, oxygen saturation 93% on 1 L, blood pressure 144/88. At this point, she was stable for discharge home. DISCHARGE PLAN: The patient was discharged on a regular diet. The patient has been instructed to use her nebulizer 3 times daily for the next week. The patient should follow up with Dr. Aceves within the next 4 to 7 days. The patient should return to the hospital if she experiences any worsening shortness of breath. I have reviewed all the instructions with the patient and her son and they are agreeable with the discharge today. This is a summarized report of the complex medical history and hospital stay. For more details, please see the entire medical record. TIME SPENT: Time for this discharge was 60 minutes, and 35 minutes was spent with the son discussing medications at discharge and followup instructions. CONDITION ON DISCHARGE: Stable. FERNANDO SUE NP [id number]/[facility] #: [id number] CRESENCIO
== END 2017-04-30 15:30 | disposition home or self-care (01) | DRG 193 ==
LOC: ED 16:13 → ICU 18:39 → MEDTELE 04-27 12:59
PROVIDERS: ADMIT Internal Medicine; ATTEND Internal Medicine
DX: J18.9 Pneumonia, unspecified organism (principal); J96.21 Acute and chronic respiratory failure with hypoxia; I24.8 Other forms of acute ischemic heart disease; J44.0 Chronic obstructive pulmonary disease with (acute) lower respiratory infection; E89.0 Postprocedural hypothyroidism; R00.0 Tachycardia, unspecified; J44.1 Chronic obstructive pulmonary disease with (acute) exacerbation; Z88.1 Allergy status to other antibiotic agents; Z88.0 Allergy status to penicillin; Z88.2 Allergy status to sulfonamides; Z98.51 Tubal ligation status; Z82.49 Family history of ischemic heart disease and other diseases of the circulatory system; Z80.1 Family history of malignant neoplasm of trachea, bronchus and lung
CPT/HCPCS: 36415; 36600; 71010; 80048; 80053; 81003; 81015; 82803; 83605; 83735; 83880; 84443; 84484; 85025; 87040; 87086; 87502; 87641; 87899; 93005; 94640; 94760; A9270-GY; J1644; J1940; J1956; J2920; J2930; J3475

== ENCOUNTER 2019-07-26 10:30 | Observation (INO) | payer MEDICARE ==
[2019-07-26] MEDS ORDERED: Albuterol/Ipratropium NEB.SOL* Albuterol 2.5 MG/Ipratropium 0.5 MG 3 ML INH ONE ×2 (10:50→14:56)
--- NOTE | 2019-07-26 11:06 | ED ---
Respiratory - HPI Summary HPI Summary: 83 year old F presenting to [facility] with a chief complaint of suddenly onset shortness of breath since earlier today. The patient rates the pain 0/10 in severity. Patient denies any fever, cough, sore throat, runny nose, vomiting, or diarrhea. She lives at home with her son and grandchildren. She denies any recent travel outside of the country or any history of blood clots or unilateral leg swelling. She has a history of COPD. Medication list reviewed. Allergy list reviewed. Home Medications Medication Instructions Recorded Confirmed Type Albuterol HFA INHALER* [Ventolin 1 puff INH Q6H PRN 04/26/17 04/26/17 History HFA Inhaler*] Tiotropium CAPSULE (NF) [Spiriva 1 cap.inh INH DAILY 04/26/17 04/26/17 History CAPSULE (NF)] Albuterol 2.5MG/3ML (0.083%)* 2.5 mg INH Q6H PRN #20 neb.soln 04/30/17 Rx [Ventolin 2.5 MG/3 ML NEB.MARY*] Levofloxacin TAB* [Levaquin 250 250 mg PO Q24H #3 tab 04/30/17 Rx Tab*] Mometasone/Formoter 200/5 MDI* 2 puff INH BID #1 mdi 04/30/17 Rx [Dulera 200/5 MDI*] guaiFENesin ER TAB [Mucinex*] 600 mg PO BID #14 tab.er 04/30/17 Rx predniSONE 10 mg TAB [Deltasone 10 10 mg PO DAILY #30 tab 04/30/17 Rx MG TAB*] - History of Current Complaint Chief Complaint: EDShortnessOfBreath Stated Complaint: AMS PER SON Time Seen by Provider: 07/26/19 10:40 Hx Obtained From: Patient Onset/Duration: Sudden Onset, Still Present Current Severity: None Pain Intensity: 0 Associated Signs and Symptoms: Negative - Fever, cough, sore throat, runny nose , vomiting, diarrhea - Allergy/Home Medications Allergies/Adverse Reactions: Allergies Allergy/AdvReac Type Severity Reaction Status Date / Time alendronate sodium Allergy Unknown Verified 07/26/19 14:25 [From Fosamax] Reaction Details amoxicillin Allergy Hives Verified 07/26/19 14:25 cephalexin Allergy Unknown Verified 07/26/19 14:25 Reaction Details clavulanic acid Allergy Unknown Verified 07/26/19 14:25 [From Augmentin] Reaction Details doxycycline Allergy Unknown Verified 07/26/19 14:25 Reaction Details Penicillins Allergy Hives Verified 07/26/19 14:25 Sulfa (Sulfonamide Allergy Hives Verified 07/26/19 14:25 Antibiotics) Home Medications: Home Medications ALPRAZolam TAB* [Xanax TAB*] 0.5 mg PO BEDTIME PRN 07/26/19 [History Confirmed 07/26/19] Aspirin EC TAB* [Ecotrin EC Low Dose 81 MG*] 81 mg PO DAILY 07/26/19 [History Confirmed 07/26/19] Fluconazole 150 MG (NF) [Diflucan 150 mg (NF)] 150 mg PO DAILY 07/26/19 [ History Confirmed 07/26/19] Hydrochlorothiazide TAB* [Hydrodiuril TAB*] 12.5 mg PO DAILY 07/26/19 [History Confirmed 07/26/19] Sulfamethoxazole/Trimethoprim [Sulfamethoxazole-Tmp Ds Tablet] 1 each PO BID [History Confirmed 07/26/19] PMH/Surg Hx/FS Hx/Imm Hx Respiratory History: Reports: Hx Asthma, Hx Chronic Obstructive Pulmonary Disease (COPD) Musculoskeletal History: Reports: Hx Arthritis Sensory History: Reports: Hx Contacts or Glasses Denies: Hx Legally Blind, Hx Deafness, Hx Hearing Aid Opthamlomology History: Reports: Hx Contacts or Glasses Denies: Hx Legally Blind - Surgical History Surgery Procedure, Year, and Place: APPENDECTOMY Infectious Disease History: No Infectious Disease History: Denies: Traveled Outside the [place] in Last 30 Days - Family History Known Family History: Positive: Diabetes - Social History Alcohol Use: None Hx Substance Use: No Substance Use Type: Reports: None Hx Tobacco Use: Yes Smoking Status (MU): Former Smoker Type: Cigarettes Length of Time of Smoking/Using Tobacco: 50 YEARS Have You Smoked in the Last Year: No Review of Systems Negative: Fever Negative: Sore Throat, Nasal Discharge Positive: Shortness Of Breath. Negative: Cough Negative: Vomiting, Diarrhea All Other Systems Reviewed And Are Negative: Yes Physical Exam - Summary Physical Exam Summary: Constitutional: Well-developed, Well-nourished, Alert. (-) Distressed Skin: Warm, Dry HENT: Normocephalic; Atraumatic Eyes: Conjunctiva normal Neck: Musculoskeletal ROM normal neck. (-) JVD, (-) Stridor, (-) Tracheal deviation Cardio: Rhythm regular, rate normal, Heart sounds normal; Intact distal pulses; Radial pulses are 2+ and symmetric. (-) Murmur Pulmonary/Chest wall: Expiratory wheezing in all lung mauricio, speaking in short sentences Abd: Soft, (-) tenderness, (-) Distension, (-) Guarding, (-) Rebound Musculoskeletal: 1+ pitting edema bilaterally Lymph: (-) Cervical adenopathy Neuro: Alert, Oriented x3 Psych: Mood and affect Normal Triage Information Reviewed: Yes Vital Signs On Initial Exam: Initial Vitals Temp Pulse Resp BP Pulse Ox 98.7 F 117 21 139/100 94 07/26/19 10:48 07/26/19 10:48 07/26/19 10:48 07/26/19 10:48 07/26/19 10:48 Vital Signs Reviewed: Yes Procedures - Sedation Patient Received Moderate/Deep Sedation with Procedure: No Diagnostics - Vital Signs Vital Signs Temp Pulse Resp BP Pulse Ox 07/26/19 10:48 98.7 F 117 21 139/100 94 - Laboratory Result Diagrams: 07/26/19 11:12 07/26/19 11:12 Lab Statement: Any lab studies that have been ordered have been reviewed, and results considered in the medical decision making process. - Radiology Chest x-ray Radiology Interpretation Completed By: Radiologist Summary of Radiographic Findings: HYPERINFLATION. NO ACTIVE CARDIOPULMONARY DISEASE. ED physician has reviewed this report. - EKG 12:48 Cardiac Rate: Tachycardia - 102 BPM EKG Rhythm: Sinus Tachycardia Summary of EKG Findings: ED physician has reviewed and interpreted this EKG. Disposition - Course Course Of Treatment: Patient is here with shortness of breath that started today. Patient has a history of COPD. Patient was tachypneic, speaking in short sentences and had extra wheezing in all lung mauricio upon arrival. Patient had chest x-ray performed which showed no change from baseline. Patient had blood performed which showed lymphopenia and elevated CRP. Given patient's laboratory tests, it is concerning that patient could have Covid 19. Patient had a swab sent for labs. Patient is given antibiotics, steroids, albuterol for COPD. Patient was admitted to the hospital. - Diagnoses Provider Diagnoses: COPD exacerbation, Tachypnea, Shortness of breath - Physician Notifications Discussed Care Of Patient With: Senait Guerra Time Discussed With Above Provider: 12:30 Instructed by Provider To: Other - Discussed with Dr. Guerra who accepts the patient for admission. Discharge ED - Sign-Out/Discharge Documenting (check all that apply): Patient Departure - Discharge Plan Condition: Stable Disposition: ADMITTED TO [facility] Referrals: Stephen Brock MD [Primary Care Provider] - - Billing Disposition and Condition Condition: STABLE Disposition: Admitted to [facility] - Attestation Statements Document Initiated by Scribe: Yes Documenting Scribe: Zoila Acuna Provider For Whom Scribe is Documenting (Include Credential): Jeremy Marin MD Scribe Attestation: Zoila Lopez scribed for Jeremy Marin MD on 07/26/19 at 1610. Scribe Documentation Reviewed: Yes Provider Attestation: The documentation as recorded by the Zoila summers accurately reflects the service I personally performed and the decisions made by , Jeremy Marin MD Status of Scribe Document: Viewed
--- OUTSIDE RECORDS SUMMARY | 2019-07-26 11:18 | XMS REPORT | Summary of Care ---
:1935 Author Organization [facility] Address [address] [facility] [place] [address] Care Team Providers Name Role Phone Martín Mcmanus Primary Care Provider Reason for Visit Reason Comments Altered Mental Status unsure of what is going on around her Fatigue unable to ambulate Body Aches states her whole body hurts Encounter Details Date Type Department Care Team Description 07/25/2019 Office Visit [facility] Martín Mcmanus MD Acute alteration in mental status (Primary Dx); Practice [address] [facility] Weakness generalized [address] [place] [address] [phone] Allergies Active Allergy Reactions Severity Noted Date Comments Penicillin G Rash High 03/19/2019 documented as of this encounter (statuses as of 07/25/2019) Medications Medication Sig Dispensed Refills Start Date End Date Status ALPRAZolam (XANAX) 0.25 MG Take 0.5 mg by 0 Active Oral Tab mouth EVERY BEDTIME NEEDED for Anxiety . aspirin (ASPIRIN 81) 81 MG Take 1 Tab by 30 Tab 0 04/09/2019 Active Oral Chew TabIndications: mouth DAILY. Memory deficit hydrochlorothiazide (HCTZ, Take 1 Cap by 30 Cap 0 04/09/2019 Active ORETIC) 12.5 MG Oral mouth DAILY. CapIndications: Essential hypertension sulfamethoxazole-trimethop Take 1 Tab by 14 Tab 0 07/02/2019 Active rim (BACTRIM DS, SEPTRA mouth TWICE DS) 800-160 MG Oral Tab DAILY. fluconazole (DIFLUCAN) 150 Take 1 Tab by 2 Tab 0 07/02/2019 Active MG Oral Tab mouth DAILY. documented as of this encounter (statuses as of 07/25/2019) Active Problems Problem Noted Date Anxiety 03/19/2019 documented as of this encounter (statuses as of 07/25/2019) Social History Tobacco Use Types Packs/Day Years Used Date Former Smoker Cigarettes 2 50 Quit: 03/19/1996 Smokeless Tobacco: Never Used Alcohol Use Drinks/Week oz/Week Comments Never Alcohol Habits Answer Date Recorded How often do you have a drink containing alcohol? Never 03/19/2019 How many drinks containing alcohol do you have on a typical Not asked day when you are drinking? How often do you have six or more drinks on one occasion? Not asked Financial Resource Strain Answer Date Recorded How hard is it for you to pay for the very basics like Not hard at all 2018 food, housing, medical care, and heating? Food Insecurity Answer Date Recorded Within the past 12 months, you worried that your food would Never true 2018 run out before you got money to buy more. Within the past 12 months, the food you bought just didn't Never true 2018 last and you didn't have money to get more. Sex Assigned at Date Recorded Not on file documented as of this encounter Last Filed Vital Signs Vital Sign Reading Time Taken Comments Blood Pressure 124/64 07/25/2019 10:40 AM EDT Pulse 110 07/25/2019 10:40 AM EDT Temperature 37.2 07/25/2019 10:40 AM EDT C (99 F) Respiratory Rate - - Oxygen Saturation 95% 07/25/2019 10:40 AM EDT Inhaled Oxygen Concentration - - Weight - - Height - - Body Mass Index - - documented in this encounter Patient Instructions Patient InstructionsMartín Mcmanus MD - 07/25/2019 10:40 AM EDTGo to Emergency Department now for evaluation Sign up for [employer] Send me a note once you have disposition documented in this encounter Progress Notes Martín Mcmanus MD - 07/25/2019 10:40 AM EDT PATIENT: Isabelle Bartlett : 1935 DATE OF SERVICE: 07/25/2019 CHIEF COMPLAINT: Chief Complaint Patient presents with ? Altered Mental Status unsure of what is going on around her ? Fatigue unable to ambulate ? Body Aches states her whole body hurts Subjective HISTORY OF PRESENT ILLNESS: Isabelle Bartlett is a 83-y.o. female. Pt here on Follow up for UTI--Seen Jun and given Septra for E. Coli greater than 100K UTI. Presents today with no improvement in condition and in fact, according to her son who is her caregiver, herphysical and mental condition has deteriorated. She is having more trouble with memory but more concerning to him is that she has lost nearly all mobility/strength. He is unsure if some of this is volitional for attention but she is making no effort to get up off couch, perform personal hygiene and issoiling herself at times. He denies she is running a fever. She complains of "aches all over" but nothing specific. No chest pain, cough, or diarrhea. She denies any burning with urination. Past Medical History: Diagnosis Date ? COPD (chronic obstructive pulmonary disease) ([facility]) Family History Problem Relation Age of Onset ? CHF Mother ? COPD Daughter ? Mental Retardation Son Current Outpatient Medications Medication Sig ? ALPRAZolam (XANAX) 0.25 MG Oral Tab Take 0.5 mg by mouth EVERY BEDTIME NEEDED for Anxiety. ? aspirin (ASPIRIN 81) 81 MG Oral Chew Tab Take 1 Tab by mouth DAILY. ? fluconazole (DIFLUCAN) 150 MG Oral Tab Take 1 Tab by mouth DAILY. ? hydrochlorothiazide (HCTZ, ORETIC) 12.5 MG Oral Cap Take 1 Cap by mouth DAILY. ? sulfamethoxazole-trimethoprim (BACTRIM DS, SEPTRA DS) 800-160 MG Oral Tab Take 1 Tab by mouth TWICE DAILY. No current facility-administered medications for this visit. Allergies Allergen Reactions ? Penicillin G Rash Social History Socioeconomic History ? Marital status: Spouse name: Not on file ? Number of children: Not on file ? Years of education: Not on file ? Highest education level: Not on file Occupational History ? Not on file Social Needs ? Financial resource strain: Not hard at all ? Food insecurity Worry: Never true Inability: Never true ? Transportation needs Medical: Not on file Non-medical: Not on file Tobacco Use ? Smoking status: Former Smoker Packs/day: 2.00 Years: 50.00 Pack years: 100.00 Types: Cigarettes Last attempt to quit: 03/19/1996 Years since quittin.3 ? Smokeless tobacco: Never Used Substance and Sexual Activity ? Alcohol use: Never Frequency: Never ? Drug use: Never ? Sexual activity: Not Currently Lifestyle ? Physical activity Days per week: Not on file Minutes per session: Not on file ? Stress: Not on file Relationships ? Social connections Talks on phone: Not on file Gets together: Not on file Attends amish service: Not on file Active member of club or organization: Not on file Attends meetings of clubs or organizations: Not on file Relationship status: Not on file ? Intimate partner violence Fear of current or ex partner: Not on file Emotionally abused: Not on file Physically abused: Not on file Forced sexual activity: Not on file Other Topics Concern ? Not on file Social History Narrative ? Not on file REVIEW OF SYSTEMS: Review of Systems Constitutional: Positive for malaise/fatigue. Negative for chills, diaphoresis, fever and weight loss. HENT: Negative for congestion, hearing loss and sore throat. Eyes: Negative for blurred vision, pain and discharge. Respiratory: Negative for cough, hemoptysis, sputum production, shortness of breath and wheezing. Cardiovascular: Negative for chest pain, palpitations, claudication and leg swelling. Gastrointestinal: Negative for abdominal pain, blood in stool, constipation, diarrhea, heartburn, nausea and vomiting. Genitourinary: Negative for dysuria. Musculoskeletal: Positive for joint pain and myalgias. Skin: Negative for rash. Neurological: Positive for weakness and headaches. Negative for dizziness and tingling. Objective PHYSICAL EXAM: VITALS: BP 124/64 | Pulse 110 | Temp 99 F (37.2 C) (Tympanic) | SpO2 95% There is no height or weight on file to calculate BMI. Physical Exam Vitals signs and nursing note reviewed. Constitutional: General: She is not in acute distress. Appearance: Normal appearance. She is normal weight. She is ill-appearing. She is not toxic-appearing or diaphoretic. HENT: Head: Normocephalic and atraumatic. Mouth/Throat: Mouth: Mucous membranes are moist. Pharynx: Oropharynx is clear. Eyes: Extraocular Movements: Extraocular movements intact. Pupils: Pupils are equal, round, and reactive to light. Neck: Musculoskeletal: Normal range of motion and neck supple. No muscular tenderness. Cardiovascular: Rate and Rhythm: Normal rate and regular rhythm. Pulses: Normal pulses. Heart sounds: Normal heart sounds. No murmur. No friction rub. No gallop. Pulmonary: Effort: Pulmonary effort is normal. No respiratory distress. Breath sounds: Normal breath sounds. No wheezing, rhonchi or rales. Lymphadenopathy: Cervical: No cervical adenopathy. Skin: General: Skin is warm and dry. Neurological: Mental Status: She is alert. She is confused. Motor: Tremor present. Comments: Short Mini Mental Status showed good short term recall but is disoriented to date/time."Is not good with math" but could not do reverse 7's. ASSESSMENT / IMPRESSION: 1. Acute alteration in mental status Today's condition is a marked change to how "spry" this patient normally is. She is much more confused and unsteady than previous visits and I am concerned that her drop in BP and pulse may be indications of an underlying infection or other process. She does not have a fever but that is not unusual inthe elderly with illness. Given the constellation and limitations on information that can be obtained today (CBC, Chemistry panel), I am advising her son to take her to the Emergency Room for evaluation. I have also asked that he contact me when she is released so we can arrange appropriate follow on either by phone or in person given the current COVID concerns. He verbalized understanding. 2. Weakness generalized As above. Plan Sign up for [employer] and call me when she is released from care at the hospital so I can sustain outpatient care for the patient. Author: Martín Mcmanus MD 07/25/2019 10:55 documented in this encounter Plan of Treatment Health Maintenance Due Date Last Done Comments MEDICARE ANNUAL WELLNESS VISIT 1935 DTaP/Tdap/Td Vaccines (1 - 1944 Tdap) HIV SCREENING 1948 ZOSTER IMMUNIZATION SERIES (1 12/03/1983 of 2) PNEUMOCOCCAL 65+YRS (1 of 2 - 1998 PCV13) INFLUENZA VACCINE (#1) 2019 DEPRESSION SCREENING 04/09/2020 04/09/2019 FALL RISK ASSESSMENT 07/24/2020 07/25/2019, 07/25/2019 HEPATITIS A IMMUNIZATION Aged Out No longer eligible based SERIES on patient's age to complete this topic HPV IMMUNIZATION SERIES Aged Out No longer eligible based on patient's age to complete this topic MENINGOCOCCAL VACCINE IMM Aged Out No longer eligible based on patient's age to complete this topic documented as of this encounter Results Not on filedocumented in this encounter Visit Diagnoses Diagnosis Acute alteration in mental status Weakness generalized Other malaise and fatigue documented in this encounter documented as of this encounter
--- OUTSIDE RECORDS SUMMARY | 2019-07-26 11:18 | XMS REPORT | Summary of Care ---
:1935 Author Organization [facility] Address [address] [facility] [place] [address] Care Team Providers Name Role Phone Yonathan Martín Primary Care Provider Reason for Visit Reason Comments Abdominal Pain pt's daughter ( Karon Cook) states pt has had severe abd cramping, incontinence, feeling warm, stiff neck and sore throat for 5 days Encounter Details Date Type Department Care Team Description 07/02/2019 Office Visit [facility] [place], Lucy, Urinary tract infection without hematuria, site unspecified (Primary Dx); Practice [facility] Sore throat [address] [place], [place] [id number] [place] [address] [phone] Allergies Active Allergy Reactions Severity Noted Date Comments Penicillin G Rash High 03/19/2019 documented as of this encounter (statuses as of 07/02/2019) Medications Medication Sig Dispensed Refills Start Date [...] as of this encounter (statuses as of 07/02/2019) Active Problems Problem Noted Date Anxiety 03/19/2019 documented as of this encounter (statuses as of 07/02/2019) Social History Tobacco Use Types Packs/Day Years [...] Sign Reading Time Taken Comments Blood Pressure 140/86 07/02/2019 2:13 PM EST Pulse 100 07/02/2019 2:39 PM EST Temperature 37.3 07/02/2019 2:13 PM EST C (99.2 F) Respiratory Rate - - Oxygen Saturation 93% 07/02/2019 2:13 PM EST Inhaled Oxygen Concentration - - Weight - - Height 146.1 cm (4' 9.5") 07/02/2019 2:13 PM EST Body Mass Index - - documented in this encounter Patient Instructions Patient InstructionsLucy Valentine PA-C - 07/02/2019 2:00 PM ESTEscribed BactrimDS, 1 pill twice daily x 7 days, take with food Escribed diflucan 150mg, take if vaginal yeast infection develops Push water Rest Will send urine for culture, will call with results Call if not improvingElectronically signed by Lucy Valentine PA-C at 2019 2:32 PM EST documented in this encounter Progress Notes Lucy Valentine PA-C - 07/02/2019 2:00 PM EST PATIENT: Isabelle Bartlett : 1935 DATE OF SERVICE: 07/02/2019 REFERRING PRACTITIONER: Self-Referred PRIMARY CARE PROVIDER: Martín Mcmanus Accompanied by daughter Karon CHIEF COMPLAINT: Chief Complaint Patient presents with ? Abdominal Pain pt's daughter ( Karon Cook) states pt has had severe abd cramping, incontinence, feeling warm, stiff neck and sore throat for 5 days Subjective HISTORY OF PRESENT ILLNESS: Isabelle Bartlett is a 83-y.o. female who presents with intermittent ab cramping (none right now), incontinence, feeling warm, stiff neck, sore throat, feverish x 5 days Drinking water, reduced appetite Was able to eat 1 egg and piece of toast this morning Did not take any meds this morning Denies nausea, vomiting, diarrhea, chest pains, SOB Past Medical History: Diagnosis Date ? COPD (chronic obstructive pulmonary disease) ([facility]) Past Surgical History: Procedure Laterality Date ? APPENDECTOMY N/A 1944 ? CATARACT EXTRACTION NEC Bilateral Family History Problem Relation Age of Onset [...] Cap Take 1 Cap by mouth DAILY. No current facility-administered medications for this [...] file Gets together: Not on file Attends judaism service: Not on file Active member of [...] ? Not on file REVIEW OF SYSTEMS: Skin: negative skin lesions Eyes: negative visual blurring Ears/Nose/Throat: positive rhinorrhea, sore throat, post nasal drip Respiratory: positive cough, copd Cardiovascular: negative chest pain Gastrointestinal: positive intermittent abdominal cramping Genitourinary: positive incontinence Musculoskeletal: positive arthritis/joint pain, stiff neck Neurologic: negative numbness or tingling of feet or hands Psychiatric: positive anxiety Hematologic/Lymphatic/Immunologic: negative allergies Endocrine: negative diabetes or hot flashes/sweats Objective PHYSICAL EXAMINATION: VITALS: BP 140/86 (BP Location: Right arm, Patient Position: Sitting) | Pulse 100 | Temp 99.2 F (37.3 C) | Ht 4' 9.5" (1.461 m) | SpO2 93% | BMI 24.20 kg/m Body mass index is 24.2 kg/m. General appearance: alert, mild distress, cooperative, oriented times 3, in wheelchair Skin: Skin color, texture, turgor normal. No rashes or lesions. Head: Normocephalic. No masses, lesions, tenderness or abnormalities Eyes: conjunctivae/corneas clear. PERRL, EOM's intact. Ears: positive findings: small amount of cerumen bilaterally Nose/Sinuses: mucosa normal, no rhinorrhea Oropharynx: positive findings: mild oropharyngeal erythema, post nasal drip present, no exudates Neck: Neck supple, FROM. No cervical or supraclavicular adenopathy. Lungs: Lungs clear. Chest symmetrical. Normal breath sounds. Heart: RRR. No murmur, clicks or gallops. No peripheral edema Abdomen: Abdomen soft. Mild tenderness over bladder. BS normal. No masses, organomegaly or hernia. URINE DIP MANUAL (AMB POCT) Order: [id number] Status: Final result Visible to patient: No (not released) Dx: Urinary tract infection without hemat... Ref Range & Units 2:00 PM URINE GLUCOSE (POCT) Negative mg/dl Negative URINE BILIRUBIN (POCT) Negative Moderate Abnormal Urine Ketones (POCT) Negative 15 Abnormal URINE SPECIFIC GRAVITY (POCT) 1.005 - 1.030 1.030 URINE BLOOD (POCT) Negative Large Abnormal URINE PH (POCT) 5.0 - 8.0 6.0 URINE PROTEIN (POCT) Negative mg/dl 300 Abnormal URINE UROBILINOGEN (POCT) 0.2 - 1.0 mg/dl 0.2 URINE NITRITES (POCT) Negative Negative URINE LEUKOCYTES (POCT) Negative Cells/uL Large Abnormal Resulting Agency [id number] Specimen Collected: 07/02/19 ?2:00 PM Last Resulted: 07/02/19 . IMPRESSION: ICD-9-CM ICD-10-CM 1. Urinary tract infection without hematuria, site unspecified 599.0 N39.0 2. Sore throat 462 J02.9 Plan PLAN: Escribed BactrimDS, 1 pill twice daily x 7 days, take with food Escribed diflucan 150mg, take if vaginal yeast infection develops Push water Rest Gargle with warm salt water for sore throat Will send urine for culture, will call with results Call if not improving Author: Lucy Valentine PA-C 07/02/2019 14:06 documented in this encounter Plan of Treatment Name Type Priority Associated Diagnoses Order Schedule URINE CULTURE (C&S) Lab Routine Urinary tract infection 1 Occurrences starting without hematuria, site 07/02/2019 until unspecified 12/29/2019 Health Maintenance Due Date Last Done Comments MEDICARE ANNUAL WELLNESS VISIT 1935 DTaP/Tdap/Td Vaccines (1 - Tdap) 1944 HIV SCREENING 1948 ZOSTER IMMUNIZATION SERIES (1 of 12/03/1983 2) FALL RISK ASSESSMENT 1998 PNEUMOCOCCAL 65+YRS (1 of 2 - 1998 PCV13) INFLUENZA VACCINE (#1) 2019 DEPRESSION SCREENING 04/09/2020 04/09/2019 HEPATITIS A IMMUNIZATION SERIES Aged Out No longer eligible based on patient's age to complete this topic HPV IMMUNIZATION SERIES Aged Out No longer eligible based on patient's age to complete this topic MENINGOCOCCAL VACCINE IMM Aged Out No longer eligible based on patient's age to complete this topic documented as of this encounter Procedures Procedure Name Priority Date/Time Associated Diagnosis Comments URINE DIP MANUAL Routine 07/02/2019 2:00 PM Urinary tract Results for this (AMB POCT) EST infection without procedure are in hematuria, site the results unspecified section. documented in this encounter Results URINE DIP MANUAL (AMB POCT) (07/02/2019 2:00 PM EST) URINE GLUCOSE (POCT) Negative Negative mg/dl [facility] POCT URINE BILIRUBIN Moderate (A) Negative [facility] (POCT) POCT Urine Ketones (POCT) 15 (A) Negative [facility] POCT URINE SPECIFIC 1.030 1.005 - 1.030 [facility] GRAVITY (POCT) POCT URINE BLOOD (POCT) Large (A) Negative [facility] POCT URINE PH (POCT) 6.0 5.0 - 8.0 [facility] POCT URINE PROTEIN (POCT) 300 (A) Negative mg/dl [facility] POCT URINE UROBILINOGEN 0.2 0.2 - 1.0 mg/dl [facility] (POCT) POCT URINE NITRITES Negative Negative [facility] (POCT) POCT URINE LEUKOCYTES Large (A) Negative [facility] (POCT) Cells/uL POCT Specimen Urine - Urine specimen (specimen) Performing Organization Address [facility] Phone Number [facility] [address] [place] [address] documented in this encounter Visit Diagnoses Diagnosis Urinary tract infection without hematuria, site unspecified Sore throat Acute pharyngitis documented in this encounter documented as of this encounter
[2019-07-26 11:37] LABS: ABS Lymphocytes 0.9 10^3/ul (1.0-4.8); ABS Monocytes 0.6 10^3/ul (0-0.8); ABS Neutrophils 7.4 10^3/ul (1.5-7.7); Eosinophil % 0.4 %; Hematocrit 33 % (35-47); Lymphocyte % 10.6 %; Mean Corpuscular HGB Conc 33 g/dL (31-36); Mean Corpuscular Hemoglobin 29 pg (27-31); Mean Corpuscular Volume 87 fL (80-97); Mean Platelet Volume 6.2 fL (7.4-10.4); Platelet Count 490 10^3/uL (150-450); Red Blood Count 3.81 10^6 /uL (3.70-4.87); Red Cell Distribution Width 13 % (10-15)
[2019-07-26] MEDS ORDERED: NS 0.9% 1000 ML** 1,000 ML IV ONE (11:45)
[2019-07-26 11:55] LABS: Albumin 3.2 g/dL (3.2-5.2); Albumin/Globulin Ratio 0.8 (1-3); BUN/Creatinine Ratio 28.1 (8-20); C Reactive Protein 129.61 mg/L (<8.01); Calcium 9.1 mg/dL (8.6-10.3); EGFR African American 106.7 (>60); EGFR Non-African American 88.2 (>60); Globulin 4.2 g/dL (2-4); Potassium 3.4 mmol/L (3.5-5.0); Total Bilirubin 0.3 mg/dL (0.2-1.0); Total Protein 7.4 g/dL (6.4-8.9)
[2019-07-26 11:56] LABS: Influenza A Molecular Negative (Negative); Influenza B Molecular Negative (Negative)
[2019-07-26 11:57] LABS: Troponin I 0.01 ng/mL (<0.03)
[2019-07-26] MEDS ORDERED: methylPREDNISolone 125 MG* 2 ML VIAL IV ONE (12:20)
[2019-07-26] MEDS ORDERED: Azithromycin 500 mg/250 ml NS 500 MG/250 ML BAG IVPB ONE (12:20)
[2019-07-26] MEDS ORDERED: cefTRIAXone(*) 1 GM in NS 0.9% 50 ML* 50 ML IVPB ONE (12:20)
[2019-07-26] MEDS ORDERED: Albuterol HFA INHALER* 8 gm MDI INH ONE (13:28)
[2019-07-26] MEDS ORDERED: Potassium Chlor TAB* 20 MEQ TAB.ER PO ONE (15:36)
[2019-07-26] MEDS ORDERED: Lidocaine PATCH 5%* 1 PATCH TRANSDERM PRN (16:55)
[2019-07-26] MEDS ORDERED: Albuterol/Ipratropium NEB.SOL* Albuterol 2.5 MG/Ipratropium 0.5 MG 3 ML INH PRN (17:11)
[2019-07-26] MEDS ORDERED: Ondansetron INJ* 2 MG/ML VIAL IV PRN (17:11)
[2019-07-26] MEDS ORDERED: Al Hydrox/Mg Hydrox/Simet LIQ* 30 ML UDC PO PRN (17:11)
[2019-07-26] MEDS ORDERED: Acetaminophen TAB* 325 MG PO PRN (17:11)
[2019-07-26 17:54] LABS: TSH (Thyroid Stimulating Horm) 2.73 mcIU/mL (0.34-5.60)
[2019-07-26] MEDS ORDERED: Enoxaparin(*) 40 MG/0.4 ML SYR SUBCUT SCH (18:00)
--- NOTE | 2019-07-26 19:14 | HP ---
CC: Dr. Mcmanus * ADMISSION HISTORY AND PHYSICAL: DATE OF ADMISSION: 07/26/19 ATTENDING PHYSICIAN WHILE IN THE HOSPITAL: Dr. Senait Guerra * (dictated by SEA Chapman). PRIMARY CARE DOCTOR: Dr. Mcmanus. CHIEF COMPLAINT: Altered mental status and generalized weakness x2 to 3 weeks. HISTORY OF PRESENT ILLNESS: Isabelle Bartlett is an 83-year-old white female with past medical history significant for COPD and hypertension, who was brought to the emergency department by her son upon direction of her primary care provider. The patient's son, Aditya, who is her primary caregiver, has been concerned about her for the last 2 to 3 weeks. She was diagnosed with a UTI and was prescribed 7 days of Bactrim on 07/02/19. She also received fluconazole. She was found to have E. coli in her urine at that point. Since that time, she has been increasingly sedentary and has also been incontinent of urine at times and having difficulty getting out of bed and off the couch. She additionally has been more confused than her normal self for the last 2 weeks, but this has not been getting worse. She is somewhat confused at times at baseline, but not to the extent that she is at this time. During my evaluation , she answers all questions appropriately, but openly admits she does not know what year or month it is. She tells me she is as short of breath as she always is due to her lung disease and her son agrees with this. She has not been having a cough, fever, chills, nasal congestion, sore throat. Additionally, she denies dysuria, abdominal pain, low back pain. She does note right knee pain and expresses that this started today. Of note, the patient's son brought her to her primary care provider's office yesterday and I do see the office visit note. Dr. Mcmanus advised her son yesterday to bring her to the emergency department as he was concerned that she may have an acute illness. The patient's son tells me that he did not bring her to the emergency department last night because she was so tired from the office visit that he wanted her to rest. EMERGENCY DEPARTMENT COURSE: It appears there was a miscommunication when she was brought into the emergency department, and because she was tachypneic, there were concerns for COVID and a COVID test was done and she was placed on precautions. Upon my review of the information and information I have gathered from the patient, the PCP, and the patient's son, it appears she meets no criteria to be tested for COVID and I will cancel the test and contact precautions are not necessary. In the emergency department, she received a liter of normal saline, Solu-Medrol 125 mg, 1 g of IV ceftriaxone, 500 mg of IV azithromycin. I ordered an albuterol inhaler because it did not look it was improving her tachypnea and then ordered a DuoNeb. PAST MEDICAL HISTORY: 1. COPD. 2. Hypertension. 3. Questionable history of normal pressure hydrocephalus. Brain MRI without contrast performed on 04/02/19 in the outpatient setting demonstrated ventricles and sulci that were asymmetrically prominent. The patient has a neurological consult in place, though has not been able to make the appointment. PAST SURGICAL HISTORY: 1. Tubal ligation. 2. Partial thyroidectomy. 3. Appendectomy. MEDICATION LIST: 1. Hydrochlorothiazide 12.5 mg p.o. daily. 2. Aspirin 81 mg p.o. daily. 3. Xanax 0.5 mg p.o. at bedtime p.r.n. anxiety. ALLERGIES: Unknown reaction to FOSAMAX, hives to AMOXICILLIN, unknown reaction to CEPHALEXIN, unknown reaction to AUGMENTIN, unknown reaction to DOXYCYCLINE, hives to PENICILLINS, hives to SULFA DRUGS. FAMILY HISTORY: Mother had an HI in her 90s. SOCIAL HISTORY: The patient lives with her son, who is her primary caregiver and her healthcare proxy. His name is Aditya Bartlett and his phone number is [phone]. She is a previous smoker for approximately 65 years and quit smoking almost 5 years ago. She denies alcohol use and illicit drug use. REVIEW OF SYSTEMS: An 11-point review of systems was completed and all pertinent positives and negatives are above in the HPI. All other systems are negative. PHYSICAL EXAMINATION GENERAL: A thin, elderly white female, lying in hospital bed, appearing comfortable, in no acute distress. She was initially minimally tachypneic, though this improves after nebulizer; not using accessory muscles with respirations or using pursed lips with respirations. VITAL SIGNS: Temperature 98.7 degrees Fahrenheit; heart rate 118, later 97; respiratory rate 21, but at one point was 31; oxygen saturation 95% on room air ; blood pressure 139/100, later 133/99. HEENT: Eyes: PERRL. Sclerae anicteric. ENT: Mucous membranes moist. LUNGS: Diminished breath sounds with faint wheezing in the upper lobes. CARDIO: Regular rate and rhythm without murmurs, rubs, or gallops. ABDOMEN: Soft, nontender, nondistended. No suprapubic tenderness. EXTREMITIES: +1 to 2 pitting pedal edema bilaterally. The patient is unable to entirely extend right knee secondary to pain. Otherwise, range of motion is intact of the left knee. NEURO: The patient is alert and oriented to self and location, but not time. She has a negative Romberg sign. Her strength is 5/5 bilaterally with dorsiflexion and plantarflexion. 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 She is right-handed. SKIN: Warm, dry, and intact. DIAGNOSTIC STUDIES/LAB DATA: White blood cell count 9.0, hemoglobin 11, hematocrit 33, platelet count 490. Blood gas, VBG; pH 7.44. Sodium 136, potassium 3.4, chloride 97, carbon dioxide 31, anion gap 8, BUN 18, creatinine 0.64, glucose 136, lactic acid 1.2. CRP 129.61. LFTs are unremarkable. Influenza A and B negative. Chest x-ray, impression: Hyperinflation. No active cardiopulmonary disease. EKG: Sinus tachycardia. No ST elevations or depressions. No T-wave inversions. [place] is normal. ASSESSMENT AND PLAN: Isabelle Bartlett is an 83-year-old white female with past medical history significant for chronic obstructive pulmonary disease, possible congestive heart failure, and possible normal pressure hydrocephalus, who presents to the emergency department for 2 to 3 weeks of altered mental status and generalized weakness since recent urinary tract infection. The patient will be admitted OBV for: 1. Generalized weakness. The patient's son is having difficulty caring for her as she is unable to perform her ADLs, which she is normally able to do, and unable to get off couch or out of bed without a great amount of assistance. This has all been going on since she was diagnosed with a urinary tract infection approximately 3 weeks ago. This has not become progressively worse recently. He has not noticed any acute changes, but he was advised to bring her to the emergency department by her primary care provider yesterday just to rule out any acute neurologic problems considering her questionable history of prior normal pressure hydrocephalus, which has not been evaluated by a neurologist outpatient as of yet. I will order CT of the brain. It really is possible that she does still have a urinary tract infection. She, however, has been afebrile without leukocytosis and she has not had dysuria, abdominal pain, or back pain. I will order a urine culture. Her PCP records do state that she had Escherichia coli in her urine a few weeks ago, but I will request record of the sensitivities. She received azithromycin and ceftriaxone while in the hospital and I will continue ceftriaxone empirically while awaiting urinalysis. She has a noted history of hives to AMOXICILLIN and PENICILLINS; however, she received ceftriaxone in the emergency department without any issues and I see no problem with continuing it. I have ordered physical therapy for possible subacute rehab placement at [facility]. I will be checking a TSH as well. 2. Tachypnea. Both the patient and the patient's son endorse that her current work of breathing is normal. She is not hypoxic. This has improved minimally with DuoNeb. I will order her to have Spiriva as it does not appear she takes any medications for her chronic obstructive pulmonary disease and she could use a maintenance inhaler, and we will continue to monitor this. Her tachypnea and tachycardia may be bilingual call center representative of sepsis and is qualifying her for sepsis criteria. She did receive 1 L of IV fluids, and at this time, I choose not to give her a full sepsis bolus as she does already have edema in her lower extremities. A blood culture has already been sent. 3. Hypertension. The patient takes hydrochlorothiazide at home and I will continue this. 4. FEN: I am awaiting the results of the CT brain. After that, the patient will be able to have a regular unrestricted diet. No further IV fluids are needed. I did replace her potassium in the emergency department as she was minimally hypokalemic. 5. DVT prophylaxis: The patient has a DVT risk score of [address] her on Lovenox. 6. Code status: The patient is DNR, but intubation is okay. Her MOLST has been updated. TIME SPENT: Approximately 65 minutes was spent on this admission, approximately half this time was spent at bedside evaluating the patient, discussing the plan of care, and discussing with her healthcare proxy and caregiver. This case has been reviewed with my attending physician, Dr. Senait Guerra, and she agrees with this plan of care. SEA CHAPMAN [id number]/[facility] #: [id number] CRES[place]
[2019-07-26] MEDS: Senna TAB 8.6 mg* TAB PO PRN ×2 (20:47→20:49)
[2019-07-26] MEDS ORDERED: Lidocaine Patch REMOVE* 1 NOTE MISC PATCH OFF SCH (21:00)
[2019-07-26] MEDS: SPIRIVA Respimat* (tiotropium) 2.5 mcg/inh Inhaler INH SCH (21:19)
[2019-07-27 05:39] LABS: Urine Appearance Clear; Urine Bilirubin Negative (Negative); Urine Blood Negative (Negative); Urine Color Yellow; Urine Glucose Negative (Negative); Urine Ketones Negative (Negative); Urine Nitrite Negative (Negative); Urine Protein Negative (Negative); Urine Specific Gravity 1.014 (1.010-1.030); Urine Urobilinogen Negative (Negative)
[2019-07-27 05:43] LABS: ABS Basophils 0.1 10^3/ul (0-0.2); ABS Lymphocytes 0.9 10^3/ul (1.0-4.8); ABS Monocytes 0.5 10^3/ul (0-0.8); ABS Neutrophils 7.9 10^3/ul (1.5-7.7); Hematocrit 29 % (35-47); Lymphocyte % 9.9 %; Mean Corpuscular HGB Conc 34 g/dL (31-36); Mean Corpuscular Hemoglobin 29 pg (27-31); Mean Corpuscular Volume 85 fL (80-97); Mean Platelet Volume 6.1 fL (7.4-10.4); Platelet Count 496 10^3/uL (150-450); Red Blood Count 3.42 10^6 /uL (3.70-4.87); Red Cell Distribution Width 13 % (10-15); White Blood Count 9.4 10^3/uL (3.5-10.8)
[2019-07-27 05:46] LABS: Urine Bacteria Absent (Absent); Urine Red Blood Cell Trace(0-2/hpf) (Absent); Urine Squamous Epithelial Cell Present (Absent); Urine White Blood Cell Trace(0-5/hpf) (Absent)
[2019-07-27 05:58] LABS: BUN/Creatinine Ratio 26.7 (8-20); Calcium 8.5 mg/dL (8.6-10.3); Potassium 4.6 mmol/L (3.5-5.0)
[2019-07-27] MEDS: SPIRIVA Respimat* (tiotropium) 2.5 mcg/inh Inhaler INH SCH (08:37)
[2019-07-27] MEDS ORDERED: Hydrochlorothiazide TAB* 25 MG PO SCH (09:00)
[2019-07-27] MEDS ORDERED: Aspirin EC TAB* 81 MG TAB.EC PO SCH (09:00)
[2019-07-27] MEDS ORDERED: cefTRIAXone(*) 1 GM in NS 0.9% 50 ML* 50 ML IVPB SCH (09:00)
[2019-07-27 10:06] LABS: C Reactive Protein 104.5 mg/L (<8.01)
--- NOTE | 2019-07-27 11:34 | PN ---
Subjective Date of Service: 07/27/19 Interval History: Ms. Bartlett is feeling well today. Her only complaint is that she is hungry. She did eat breakfast. She does admit to feeling weak on her feet, but has been ambulating with staff. Denies CP, cough, N/V. She does endorse SOB, but states this is her baseline. Nursing reports tachycardia and tachypnea. Family History: Unchanged from Admission Social History: Unchanged from Admission Past Medical History: Unchanged from Admission Objective Active Medications: Acetaminophen (Tylenol Tab*) 650 mg PO Q4H PRN MILD PAIN or TEMP > 100.4 Al Hydrox/Mg Hydrox/Simethicone (Maalox Plus*) 30 ml PO Q6H PRN INDIGESTION Albuterol/Ipratropium (Duoneb (Albuterol 2.5 Mg/Ipratropium 0.5 Mg)) 1 neb INH [id number] AWAKE PRN sob/wheexing Aspirin (Aspirin Ec Tab*) 81 mg PO DAILY KEVIN Enoxaparin Sodium (Lovenox(*)) 40 mg SUBCUT Q24H KEVIN Hydrochlorothiazide (Hydrodiuril Tab*) 12.5 mg PO DAILY KEVIN Ceftriaxone Sodium 1 gm/ (Sodium Chloride) 50 mls @ 100 mls/hr IVPB Q24H [facility] Lidocaine (Lidoderm 5% Patch*) 1 patch TRANSDERM DAILY PRN PAIN - MILD Ondansetron HCl (Zofran Inj*) 4 mg IV Q4H PRN NAUSEA/VOMITING Senna (Senokot 8.6 Mg Tab*) 1 tab PO BID PRN CONSTIPATION Tiotropium [place] (Spiriva Respimat 2.5 Mcg) 2 puff INH DAILY [facility] Vital Signs - 8 hr 07/27/19 07/27/19 07:17 11:01 Temperature 98.1 F 98.1 F Pulse Rate 101 102 Respiratory 28 22 Rate Blood Pressure 138/53 150/80 (mmHg) O2 Sat by Pulse 94 96 Oximetry Oxygen Devices in Use Now: None Appearance: Elderly female sitting in chair in NAD Ears/Nose/Mouth/Throat: Mucous Membranes Moist Neck: NL Appearance and Movements; NL JVP, Trachea Midline Respiratory: Symmetrical Chest Expansion and Respiratory Effort, Clear to Auscultation Cardiovascular: NL Sounds; No Murmurs; No JVD, RRR Abdominal: NL Sounds; No Tenderness; No Distention Extremities: - - +1 pitting RLE Neurological: Alert and Oriented x 3 Lines/Tubes/Other Access: Clean, Dry and Intact Peripheral IV Nutrition: Taking PO's Result Diagrams: 07/27/19 05:28 07/27/19 05:28 Assess/Plan/Problems-Billing Assessment: Ms. Barteltt is an 83 yo F with PMH of COPD, HTN, suspected normal pressure hydrocephalus; presented to the ED with c/o AMS and weakness and was admitted for further evaluation. - Patient Problems (1) Weakness Code(s): R53.1 - WEAKNESS Comment: - Suspect deconditioning - CT brain unremarkable - No evidence of recurrent UTI or other infectious process - PT/OT evals; will likely need ALEJANDRA (2) Tachycardia Code(s): R00.0 - TACHYCARDIA, UNSPECIFIED Comment: - Asypmtomatic - Based on old records, it appears patient's baseline HR is 80-100s (3) Altered mental status Code(s): R41.82 - ALTERED MENTAL STATUS, UNSPECIFIED Comment: - Resolved - Son reported AMS, patient mildly confused on admission, now appears fully oriented - CT brain unremarkable - Unclear etiology; possibly advancing dementia (4) COPD (chronic obstructive pulmonary disease) Code(s): J44.9 - CHRONIC OBSTRUCTIVE PULMONARY DISEASE, UNSPECIFIED Comment: - Not in exacerbation - Appears slightly dyspneic and RR is mildly elevated, but patient states this is her baseline - Continue Spiriva (5) Hypertension Code(s): I10 - ESSENTIAL (PRIMARY) HYPERTENSION Comment: - Slightly hypertensive - Will consider adding another agent if BP remains elevated; metoprolol would also be beneficial for sinus tach - Continue HCTZ (6) DVT prophylaxis Comment: - Lovenox (7) DNR (do not resuscitate) Comment: Status and Disposition: Observation. Discharge to [facility] when bed available. Attending: Yelitza Rodrigues
[2019-07-27 15:54] VITALS: BP 127/56
--- NOTE | 2019-07-27 17:58 | DS ---
CC: Dr. Stephen Brock * DISCHARGE SUMMARY: DATE OF ADMISSION: 07/26/19 DATE OF DISCHARGE: 07/27/19 PRIMARY CARE PROVIDER: Dr. Stephen Brock. ATTENDING PHYSICIAN: Dr. Yelitza Rodrigues.* (DICTATED BY ZARINA WILDER NP) PRIMARY DIAGNOSES: 1. Deconditioning. 2. Sinus tachycardia. 3. Altered mental status. SECONDARY DIAGNOSES: 1. Chronic obstructive pulmonary disease. 2. Hypertension. STUDIES WHILE IN THE HOSPITAL: 1. EKG on 07/26/19 shows sinus tachycardia with a rate of 102. It is difficult to decide for any further due to artifact, though there does not appear to be any ST changes. 2. Chest x-ray on 07/26/19 reads as hyperinflation. No active cardiopulmonary disease. 3. Brain CT on 07/26/19 reads as atrophy with no definite intracranial mass or hemorrhage. HISTORY OF PRESENT ILLNESS AND HOSPITAL COURSE: Ms. Bartlett is an 83-year-old female with past medical history of COPD, hypertension, and questionable normal pressure hydrocephalus, who presented to the emergency room on 07/26/19 with altered mental status and generalized weakness. Please see the history and physical by SEA Chapman, for a complete summary of the events leading up to this hospitalization. In short, the patient lives with her son who is her primary caregiver. He notes that she had a UTI back in June for which she completed a course of antibiotic, though since that time has been generally weak. He noted intermittent confusion. The patient saw her PCP on the day prior to presentation, and reportedly the PCP told the patient to present to the emergency room to rule out any acute illness. In the emergency room, the patient had imaging as noted above. She had lab work which revealed an anemia consistent with her baseline and an elevated CRP but was otherwise unremarkable. Vitals were stable except for some mild tachycardia. She was admitted for further evaluation. Initially in the emergency room, the patient was swabbed for rule out COVID due to concerns of lymphopenia and elevated CRP, though the patient did not meet criteria to be tested for COVID as she did not display any symptoms consistent with COVID. I will also note that she does appear to be intermittently lymphopenic dating back to 2017. She does not show any evidence of illness at this point. No evidence of UTI or pneumonia. As of this morning, the patient is alert and completely oriented. She did work with Physical Therapy this morning, who indicated that she could use some continued physical therapy, though she was able to ambulate 75 feet with assistance. The patient did refuse rehab. The disease case manager rn and I both spoke with the patient's son and he is agreeable to the patient returning home with him with home services. He notes that he is a middle school coach and so will be at home with the patient until the fall and he feels that they will be able to manage her well at home. The patient was noted to be consistently mildly tachycardic while here in the hospital. In the last 24 hours, maximum heart rate recorded was noted to be 106. Looking back at the patient's history, she does appear to have a baseline heart rate in the 80s to low 100s and is asymptomatic, so I am not particularly concerned about this, I think it is her baseline. Additionally, she is noted to be slightly tachypneic, but she notes this is also her baseline as she typically does experience a mild degree of shortness of breath, but again no worse than her baseline at this point. PHYSICAL EXAMINATION: On exam, she is alert and oriented x4 with no focal neurological deficits. Heart is a regular rate and rhythm without murmurs, rubs , or gallops. Lungs are clear to auscultation without rhonchi, wheezes, or rubs. There is +1 edema to the right lower extremity, though no pain, erythema, or other indications of thrombus. Ms. Bartlett is stable for discharge. Most recent vitals are as follows: Temp 98.2, heart rate 105, respiratory rate 16, oxygen saturation 93% on room air, blood pressure 127/56. DISCHARGE MEDICATIONS: New: 1. Spiriva 1 puff daily. Continued: 1. Alprazolam 0.5 mg p.o. at bedtime p.r.n. anxiety. 2. Aspirin 81 mg p.o. daily. 3. Hydrochlorothiazide 12.5 mg p.o. daily. DISCHARGE PLAN: Ms. Bartlett will be discharged home with her son. Activity will be as tolerated. Diet will be regular as tolerated. Medications are noted above. She was not on any medications for her COPD, which is slightly concerning given her baseline symptoms, so she has been started on Spiriva, which she should continue going forward. She can resume her other usual medications. We have sent in a referral for visiting nurses so that they can provide in-home care and physical therapy, and again, the patient's son does indicate that he feels comfortable taking her back home. The patient should follow up with her primary care provider in the next 4 to 7 days. She should return to the emergency room or nearest hospital for any worsening of symptoms, shortness of breath, lightheadedness, dizziness, chest discomfort, high fevers, chills, night sweats, loss of consciousness, or any other worrisome signs or symptoms. DISCHARGE CONDITION: Stable. DISCHARGE DISPOSITION: Home. This is a summarized report of a complex medical history and hospital stay. For further details, please see the entire medical record. TIME SPENT: Approximately 45 minutes was spent on this discharge. ZARINA WILDER NP [id number]/[facility] #: [id number] [place]ES[place]
== END 2019-07-27 16:40 | disposition home or self-care (01) ==
LOC: ED 10:30 → MED 17:11
PROVIDERS: ADMIT Hospitalist; ATTEND Internal Medicine
DX: R53.81 Other malaise (principal); R00.0 Tachycardia, unspecified; R41.82 Altered mental status, unspecified; J44.1 Chronic obstructive pulmonary disease with (acute) exacerbation; R06.02 Shortness of breath; I10 Essential (primary) hypertension; Z79.82 Long term (current) use of aspirin; Z79.899 Other long term (current) drug therapy; Z88.0 Allergy status to penicillin; Z88.2 Allergy status to sulfonamides; Z88.8 Allergy status to other drugs, medicaments and biological substances; Z87.891 Personal history of nicotine dependence; Z82.49 Family history of ischemic heart disease and other diseases of the circulatory system; Z79.52 Long term (current) use of systemic steroids
CPT/HCPCS: 36415; 70450; 71045; 80048; 80053; 81003; 81015; 82803; 83605; 83880; 84443; 84484; 85025; 85379; 86140; 87040; 87086; 93005; 94640; 96361; 96365; 96372; 96375; 99284; A9270-GY; G0378; J0456; J0696; J1650; J2930; J3535; U0002